=== PATIENT | male | born 1960 | race Caucasian/White ===

== ENCOUNTER 2021-12-05 08:00 | Outpatient (CLI) | payer OTHER ==
[2021-12-05 20:48] LABS: BASOPHILS % (AUTO) 0.3 %; EOSINOPHILS % (AUTO) 0.2 %; HCT - HEMATOCRIT 48.2 % (42.0-52.0); HGB - HEMOGLOBIN 17.8 g/dL (14.0-18.0); LYMPHOCYTES # (AUTO) 1.1 10^3/uL (1.5-3.5); LYMPHOCYTES % (AUTO) 11.1 %; MEAN CORPUSCULAR HEMOGLOBIN 36.7 pg (27.0-31.0); MEAN CORPUSCULAR HGB CONC 36.9 g/dL (32.0-36.0); MEAN CORPUSCULAR VOLUME 99.4 fL (80.0-94.0); MEAN PLATELET VOLUME 10.9 fL (7.4-11.4); MONOCYTES % (AUTO) 10.4 %; NEUTROPHILS # (AUTO) 7.4 10^3/uL (1.5-6.6); NEUTROPHILS % (AUTO) 77.7 %; PLT - PLATELET COUNT 166 10^3/uL (130-450); RED BLOOD COUNT 4.85 10^6/uL (4.70-6.10); RED CELL DISTRIBUTION WIDTH 12.5 % (12.0-15.0); WHITE BLOOD COUNT 9.5 x10^3/uL (4.8-10.8)
[2021-12-05 21:02] LABS: ALBUMIN 4.3 g/dL (3.2-5.5); ALBUMIN/GLOBULIN RATIO 1.1 (1.0-2.2); ALKALINE PHOSPHATASE 77 IU/L (42-121); ALT ALANINE AMINOTRANSFERASE 44 IU/L (10-60); AST ASPARTATE AMINOTRANSFERASE 87 IU/L (10-42); BILIRUBIN,TOTAL 4.5 mg/dL (0.2-1.0); BUN - BLOOD UREA NITROGEN 13 mg/dL (6-20); CALCIUM 9.4 mg/dL (8.5-10.3); CARBON DIOXIDE - CO2 30 mmol/L (21-32); CHLORIDE 92 mmol/L (101-111); CHOL/HDL RATIO 2.3 (<5.0); CHOLESTEROL 155 mg/dL; GFR - MDRD 34 (>89); GLUCOSE 136 mg/dL (70-100); HDL CHOLESTEROL 67 mg/dL; LDL CHOLESTEROL,CALCULATED 69 mg/dL; POTASSIUM 3.1 mmol/L (3.5-5.0); SODIUM 134 mmol/L (135-145); TOTAL PROTEIN 8.2 g/dL (6.7-8.2); TRIGLYCERIDES 93 mg/dL; VLDL CHOLESTEROL 19 mg/dL
[2021-12-05 21:09] LABS: ESTIMATED AVERAGE GLUCOSE 88 mg/dL (70-100); HEMOGLOBIN A1c% 4.7 % (4.27-6.07)
== END 2021-12-05 23:59 | disposition home or self-care (01) ==
LOC: LAB.N 08:00
PROVIDERS: ATTEND Physician Assistant
DX: I10 Essential (primary) hypertension (principal); E78.5 Hyperlipidemia, unspecified; E11.9 Type 2 diabetes mellitus without complications
CPT/HCPCS: 36415; 80053; 80061; 83036; 83721; 85025

== ENCOUNTER 2021-12-10 08:00 | Outpatient (CLI) | payer OTHER ==
[2021-12-10 18:17] LABS: CALCIUM 9.2 mg/dL (8.5-10.3); CREATININE 1.1 mg/dL (0.6-1.2)
== END 2021-12-10 23:59 | disposition home or self-care (01) ==
LOC: LAB.N 08:00
PROVIDERS: ATTEND Physician Assistant
DX: I10 Essential (primary) hypertension (principal)
CPT/HCPCS: 36415; 80048; 82150; 83690

== ENCOUNTER 2022-11-24 01:15 | Outpatient (CLI) | payer OTHER | END 2022-11-24 01:16 | disposition other institution (70) | LOC: EMS 01:15 | DX: S01.81XA Laceration without foreign body of other part of head, initial encounter (principal); S01.21XA Laceration without foreign body of nose, initial encounter; S36.892A Contusion of other intra-abdominal organs, initial encounter; S60.512A Abrasion of left hand, initial encounter; S60.511A Abrasion of right hand, initial encounter; S82.892B Other fracture of left lower leg, initial encounter for open fracture type I or II; S09.90XA Unspecified injury of head, initial encounter; R41.2 Retrograde amnesia; V23.49XA Other motorcycle driver injured in collision with car, pick-up truck or van in traffic accident, initial encounter; Y93.55 Activity, bike riding; Y92.414 Local residential or business street as the place of occurrence of the external cause | CPT/HCPCS: A0425; A0427 ==

== ENCOUNTER 2024-05-16 17:32 | Inpatient (IN) ==
--- NOTE | 2024-05-16 17:40 | ED Physician Documentation ---
PD HPI DYSPNEA Stated complaint Stated Complaint: SOA Chief complaint Chief Complaint: Resp History obtained from History obtained from: Patient and EMS History of Present Illness Timing - onset: How many weeks ago (1) Timing - duration: Weeks (1) Timing - details: Abrupt onset (he states a week of fevers/aches, weakness, poor appetite and intake accompanies by nausea/some vomiting/diarrhea. Worse dyspnea with cough and called EMS. they noted Sats low 70s%. placed on oxygen and given nebs. ) Inciting event(s): URI Associated symptoms: Fever, Cough and Wheezing; No Palpitations or Bilateral edema Similar symptoms before: Has not had sx before Recently seen: Not recently seen Meds/Allgy Allergies Allergies Allergy/AdvReac Type Severity Reaction Status Date / Time No Known Drug Allergies Allergy Verified 05/16/24 17:39 [facility] Social History Social History (Updated 05/16/24 @ 20:49 by Guanakito Mcclain DNP) Smoking Status: Former smoker Do you dip or chew tobacco?: No Do you vape?: No Patient requests smoking cessation consult: No Initiate information on smoking cessation: No Relationship: Level: Independent Do you feel safe in your home environment?: Yes Suffered physical, verbal, emotional, or financial abuse?: No Substance Use: denies use Exam Constitutional normal general appearance, distress noted (moderate) (work of breathing), average body habitus and alert HENMT oral mucous membranes abnormal (dry) and oropharynx normal Neck/C-Spine supple and no meningeal signs Lymph no lymphadenopathy noted Respiratory breath sounds unequal, abnormal respiratory effort (labored), auscultation abnormal (diminished breath sound) (rigth base) and (bronchial breath sounds) and wheezing noted (expiratory wheezes) Cardiovascular heart rate abnormal (tachycardic), regular rhythm noted, no murmur and no edema Gastrointestinal abdomen soft to palpation and nontender to palpation Neurology coordination normal and GCS 15 Psychiatry mental status grossly normal, oriented x3 and thought process normal Skin skin color abnormal (pale) and no rash Results Vitals Vitals: Vital Signs - 24 hr 05/16/24 17:36 05/16/24 17:46 05/16/24 17:47 Temperature 37.5 C Temperature Source Temporal Artery Scan Pulse Rate 114 H Respiratory Rate 22 Blood Pressure 155/74 H O2 Saturation 92 85 L Oxygen Delivery Method Nasal Cannula O2 Source neb Room air If not protocol: Oxygen Flow, liters/minute 6 FiO2 (%) Pain Intensity 0 05/16/24 18:09 05/16/24 18:10 05/16/24 18:55 Temperature Temperature Source Pulse Rate 116 H 116 H 112 H Respiratory Rate 22 22 20 Blood Pressure 135/74 H 137/74 H O2 Saturation 94 94 Oxygen Delivery Method O2 Source high flow HHFNC HHFNC If not protocol: Oxygen Flow, liters/minute 45 45 FiO2 (%) 60 Pain Intensity Oxygen O2 Source HHFNC EKG (time done) 17:54: EKG releavant findings:: EKG personally interpreted by author of this note. Relevant findings are: Rate: Rate (enter#) (116) Rhythm: Sinus tachycardia [place]: Normal Intervals: Normal RI; No Prolonged QT QRS: QRS normal Ischemia: Normal ST segments; No ST elevation c/w ischemia Compare to prior EKG: Old EKG unavailable Labs Labs: Laboratory Tests 05/16/24 05/16/24 05/16/24 17:36 17:44 17:44 WBC 3.8 L RBC 2.45 L Hgb 10.1 L Hct 25.1 L MCV 102.4 H MCH 41.2 H MCHC 40.2 H RDW 15.9 H Plt Count 58 L MPV 10.5 Neut # (Auto) Not Reportable Lymph # (Auto) Not Reportable [place] # (Auto) Not Reportable Eos # (Auto) Not Reportable Baso # (Auto) Not Reportable Absolute Nucleated RBC Not Reportable Total Counted 100 Band Neuts % (Manual) 13 H Abnorm Lymph % (Manual) 0 Metamyelocytes % 5 H Myelocytes % 1 H Nucleated RBC % Not Reportable Neutrophils # (Manual) 2.9 Lymphocytes # (Manual) 0.4 L Monocytes # (Manual) 0.3 Eosinophils # (Manual) 0.0 Basophils # (Manual) 0.0 Differential Comment MANUAL DIFFERENTIAL Manual Slide Review Indicated WBC Morphology 1+ TOXIC GRANULATION Platelet Estimate DECREASED (<130,000) Platelet Morphology NORMAL APPEARANCE RBC Morph Micro Appear 1+ ANISOCYTOSIS 1+ MICROCYTOSIS Bld Gas Analysis Time Sample Site ABG pH ABG pCO2 ABG pO2 ABG HCO3 ABG Total CO2 ABG O2 Saturation ABG Base Excess Hong Test O2 Delivery Device O2 Liters/Min FiO2 Sodium Potassium Chloride Carbon Dioxide Anion Gap BUN Creatinine Estimated GFR (MDRD) Glucose Calcium Magnesium Total Bilirubin AST ALT Alkaline Phosphatase Troponin I High Sens B-Natriuretic Peptide Total Protein Albumin Globulin Albumin/Globulin Ratio Lipase Nasal Adenovirus (PCR) NOT DETECTED Nasal B. parapertussis DNA (PCR) NOT DETECTED Nasal Coronavir 229E PCR NOT DETECTED Nasal Coronavir HKU1 PCR NOT DETECTED Nasal Coronavir NL63 PCR NOT DETECTED Nasal Coronavir OC43 PCR NOT DETECTED Nasal Enterovir/Rhinovir PCR NOT DETECTED Nasal Influ A H1 2009 PCR DETECTED A Nasal Influenza B PCR NOT DETECTED Nasal Parainfluen 1 PCR NOT DETECTED Nasal Parainfluen 2 PCR NOT DETECTED Nasal Parainfluen 3 PCR NOT DETECTED Nasal Parainfluen 4 PCR NOT DETECTED Nasal RSV (PCR) NOT DETECTED Nasal B.pertussis DNA PCR NOT DETECTED Nasal C.pneumoniae (PCR) NOT DETECTED Jack Human Metapneumo PCR NOT DETECTED Nasal M.pneumoniae (PCR) NOT DETECTED Nasal SARS-CoV-2 (PCR) NOT DETECTED 05/16/24 05/16/24 05/16/24 17:44 17:44 17:44 WBC RBC Hgb Hct MCV MCH MCHC RDW Plt Count MPV Neut # (Auto) Lymph # (Auto) [place] # (Auto) Eos # (Auto) Baso # (Auto) Absolute Nucleated RBC Total Counted Band Neuts % (Manual) Abnorm Lymph % (Manual) Metamyelocytes % Myelocytes % Nucleated RBC % Neutrophils # (Manual) Lymphocytes # (Manual) Monocytes # (Manual) Eosinophils # (Manual) Basophils # (Manual) Differential Comment Manual Slide Review WBC Morphology Platelet Estimate Platelet Morphology RBC Morph Micro Appear 1+ MACROCYTOSIS 1+ HYPOCHROMASIA 1+ POLYCHROMASIA Bld Gas Analysis Time Sample Site ABG pH ABG pCO2 ABG pO2 ABG HCO3 ABG Total CO2 ABG O2 Saturation ABG Base Excess Hong Test O2 Delivery Device O2 Liters/Min FiO2 Sodium 123 L Potassium 2.0 L* Chloride 88 L Carbon Dioxide 15 L Anion Gap 20.0 H BUN 46 H Creatinine 4.2 H Estimated GFR (MDRD) 14 L Glucose 148 H Calcium 7.6 L Magnesium 1.0 L* Total Bilirubin 2.4 H AST 160 H ALT 70 H Alkaline Phosphatase 30 L Troponin I High Sens 164.2 H* B-Natriuretic Peptide 129 H Total Protein 6.7 Albumin 3.8 Globulin 2.9 Albumin/Globulin Ratio 1.3 Lipase 50 Nasal Adenovirus (PCR) Nasal B. parapertussis DNA (PCR) Nasal Coronavir 229E PCR Nasal Coronavir HKU1 PCR Nasal Coronavir NL63 PCR Nasal Coronavir OC43 PCR Nasal Enterovir/Rhinovir PCR Nasal Influ A H1 2009 PCR Nasal Influenza B PCR Nasal Parainfluen 1 PCR Nasal Parainfluen 2 PCR Nasal Parainfluen 3 PCR Nasal Parainfluen 4 PCR Nasal RSV (PCR) Nasal B.pertussis DNA PCR Nasal C.pneumoniae (PCR) Jack Human Metapneumo PCR Nasal M.pneumoniae (PCR) Nasal SARS-CoV-2 (PCR) 05/16/24 18:32 WBC RBC Hgb Hct MCV MCH MCHC RDW Plt Count MPV Neut # (Auto) Lymph # (Auto) [place] # (Auto) Eos # (Auto) Baso # (Auto) Absolute Nucleated RBC Total Counted Band Neuts % (Manual) Abnorm Lymph % (Manual) Metamyelocytes % Myelocytes % Nucleated RBC % Neutrophils # (Manual) Lymphocytes # (Manual) Monocytes # (Manual) Eosinophils # (Manual) Basophils # (Manual) Differential Comment Manual Slide Review WBC Morphology Platelet Estimate Platelet Morphology RBC Morph Micro Appear Bld Gas Analysis Time 1838 Sample Site RIGHT RADIAL ABG pH 7.43 ABG pCO2 18 L* ABG pO2 191 H ABG HCO3 11.9 L ABG Total CO2 12.5 L ABG O2 Saturation 99 H ABG Base Excess -12.6 L Hong Test POSITIVE O2 Delivery Device NASAL CANNULA O2 Liters/Min 45.00 FiO2 66.00 Sodium Potassium Chloride Carbon Dioxide Anion Gap BUN Creatinine Estimated GFR (MDRD) Glucose Calcium Magnesium Total Bilirubin AST ALT Alkaline Phosphatase Troponin I High Sens B-Natriuretic Peptide Total Protein Albumin Globulin Albumin/Globulin Ratio Lipase Nasal Adenovirus (PCR) Nasal B. parapertussis DNA (PCR) Nasal Coronavir 229E PCR Nasal Coronavir HKU1 PCR Nasal Coronavir NL63 PCR Nasal Coronavir OC43 PCR Nasal Enterovir/Rhinovir PCR Nasal Influ A H1 2009 PCR Nasal Influenza B PCR Nasal Parainfluen 1 PCR Nasal Parainfluen 2 PCR Nasal Parainfluen 3 PCR Nasal Parainfluen 4 PCR Nasal RSV (PCR) Nasal B.pertussis DNA PCR Nasal C.pneumoniae (PCR) Jack Human Metapneumo PCR Nasal M.pneumoniae (PCR) Nasal SARS-CoV-2 (PCR) Rads (name of study) chest xray: Relevant Findings:: Final report received and EMP independent interpretation of test Interpretation: FINDINGS: Surgical changes and devices: Right port device is in place with distal tip projecting near the cavoatrial junction. Lungs and pleura: Diffuse interstitial prominence. Loss of vascular distinctness. Mild vascular congestion. Small right pleural effusion. No pneumothorax. Patchy opacity of the right lung base. Mediastinum: Mediastinal contours appear normal. Heart size is mildly enlarged. Bones and chest wall: No suspicious bony lesions. Overlying soft tissues appear unremarkable. IMPRESSION: Mild cardiomegaly with findings suggestive of pulmonary edema/CHF. However, concurrent infectious process in the right lower lung zone not excluded if clinically appropriate. PD Medical Decision Making ED course Complexity details: reviewed results (significant lab abnormalities with creatinine 4.2, K 2.0, and Mag 1.0. Resp panel positive for Influenza A. ), re- evaluated patient (breathing is more relaxed and sats consistently adequate on high flow NC, was just okay on regular NC at 6-8 lpm. Pt does not appear to be heading to ventilatory respiratory failure, just the oxygenation insufficency. ) and considered differential (seems viral flu like illness with cough and dyspnea, development of pneumonia/pneumonitis renal insufficiency from dehydration, and severe electrolyte abnormalities. ) Reviewed Lab Results: FINDINGS: Surgical changes and devices: Right port device is in place with distal tip projecting near the cavoatrial junction. Lungs and pleura: Diffuse interstitial prominence. Loss of vascular distinctness. Mild vascular congestion. Small right pleural effusion. No pneumothorax. Patchy opacity of the right lung base. Mediastinum: Mediastinal contours appear normal. Heart size is mildly enlarged. Bones and chest wall: No suspicious bony lesions. Overlying soft tissues appear unremarkable. IMPRESSION: Mild cardiomegaly with findings suggestive of pulmonary edema/CHF. However, concurrent infectious process in the right lower lung zone not excluded if c linically appropriate. ED course: Patient with a prior history of lung cancer previously treated with radiation and chemo without surgery and has been cleared without any apparent recurrence now has 1 week of cough fevers malaise congestion which she thought was likely the flu. It has increased dyspnea over the last day or 2 in particular with productive sputum. Now dyspnea to the point of unable to walk even to the bathroom. Called EMS and they noted his sats to be low 80s. Given nebulizer treatments for wheezing and placed on higher oxygen. He does not have notable significant increased work of breathing. He is awake and conversant and does not look to be in impending failure. Lung sounds are wheezy without any crackles per se but some coarse sounds noted on the right in particular. Initial chest x-ray showing likely patchy infiltrates particularly on the right side and right lower. Lab tests are still pending. Initial oxygen level on room air after arrival here with a trial off oxygen showing 85 to 88%. Placed on nasal cannula 5 to 6 L with resulting just above 90%. We will give repeat nebulizer treatment. Maintain on oxygen or perhaps try high flow if needed. He does not look to be in impending failure as noted. We will watch carefully. Initially covering for secondary bacterial in case. Getting a respiratory panel. Will also look for signs of failure but no history of heart disease per se. No history of reactive lung disease and does not use oxygen or inhalers at home. Presume a viral type illness with now either viral pneumonitis or secondary bacterial pneumonia. Critical Care Critical Care Provided: Yes Time(min): 45 Comments: evaluation of resp distress, high flow oxygen, assess for deterioration. Give IV electorlyte replacements and fluids for critical lab abnormalities. Time Includes: Direct patient care, Reassess patient, Document care, Coordinate care and Medical consult Data interpretation: Labs, Pulse ox and CXR Procedures excluded from critical care time: EKG Discharge Plan Discharge Patient Disposition: 66 [facility] DC/Xfer Condition: Stable Clinical Impression: Electrolyte and fluid disorder, Pneumonia, Hypoxia, Acute dyspnea, Flu-like symptoms, Acute dehydration, CALOS (acute kidney injury) Interventions: ED Admission Assessment Last Done: 05/16/24 20:18
[2024-05-16] MEDS ORDERED: IPRATROPIUM/ALBUTEROL 3 ML NEB INH ONE (18:02)
[2024-05-16] MEDS: DEXAMETHASONE 10 MG/ML VIAL IVP STA (18:04)
[2024-05-16] MEDS: cefTRIAXone 1 GM VIAL IVP STA (18:04)
--- NOTE | 2024-05-16 18:04 | XRAY Report ---
PROCEDURE: XR Chest 1V INDICATIONS: shortness of breath TECHNIQUE: One view of the chest was acquired. COMPARISON: None. FINDINGS: Surgical changes and devices: Right port device is in place with distal tip projecting near the cavo atrial junction. Lungs and pleura: Diffuse interstitial prominence. Loss of vascular distinctness. Mild vascular jenny estion. Small right pleural effusion. No pneumothorax. Patchy opacity of the right lung base. Mediastinum: Mediastinal contours appear normal. Heart size is mildly enlarged. Bones and chest wall: No suspicious bony lesions. Overlying soft tissues appear unremarkable. IMPRESSION: Mild cardiomegaly with findings suggestive of pulmonary edema/CHF. However, concurrent infectious pro cess in the right lower lung zone not excluded if clinically appropriate. Recommend follow-up chest radiograph 4-6 weeks after treatment to document resolution of findings and /or return to baseline exam. Reviewed by: Johan Veliz MD on 05/16/2024 6:02 PM PST Approved by: Johan Veliz MD on 05/16/2024 6:02 PM PST Station ID: [id number]
[2024-05-16] MEDS: SODIUM CHLORIDE 0.9% 1,000 ML IV STA ×2 (18:05→20:32)
[2024-05-16] MEDS: IPRATROPIUM/ALBUTEROL 3 ML NEB INH STA (18:08)
[2024-05-16 18:14] LABS: ALBUMIN 3.8 g/dL (3.2-5.5); ALBUMIN/GLOBULIN RATIO 1.3 (1.0-2.2); BILIRUBIN,TOTAL 2.4 mg/dL (0.2-1.0); CALCIUM 7.6 mg/dL (8.5-10.3); CREATININE 4.2 mg/dL (0.6-1.3); TOTAL PROTEIN 6.7 g/dL (6.4-8.9); TROPONIN I HIGH SENSITIVITY 164.2 ng/L (2.3-19.7)
[2024-05-16] MEDS: AZITHROMYCIN INJ 500 MG in SODIUM CHLORIDE 0.9% 250 ML IV STA (18:21)
[2024-05-16] MEDS: POTASSIUM CHLOR 10 MEQ/100 ML 10 MEQ/100 ML BAG IV ONE (18:31)
[2024-05-16] MEDS: MAGNESIUM SULFATE 2 GRAM 2 GM/50 ML BAG IV ONE ×2 (18:31→22:52)
[2024-05-16 18:44] LABS: ABG OXYGEN SATURATION 99 % (95-98); ABG PH 7.43 (7.35-7.45); ABG PO2 191 mmHg (83-108); ABG TCO2 12.5 mmol/L (21.0-29.0)
[2024-05-16 18:45] LABS: ABG BASE EXCESS -12.6 mmol/L (-2.0-3.0); ALLEN TEST POSITIVE
[2024-05-16 18:49] LABS: ABG PCO2 18 mmHg (34-45)
[2024-05-16 18:53] LABS: CORONAVIRUS 229E-RESP PCR NOT DETECTED; CORONAVIRUS NL63-RESP PCR NOT DETECTED; CORONAVIRUS OC43-RESP PCR NOT DETECTED
[2024-05-16] MEDS: LACTATED RINGERS 1,000 ML IV ONE (18:53)
[2024-05-16 18:54] LABS: B. PARAPERTUSSIS- RESP PCR PAN NOT DETECTED; B. PERTUSSIS- RESP PCR PANEL NOT DETECTED; C. PNEUMONIAE- RESP PCR PANEL NOT DETECTED; CORONAVIRUS HKU1-RESP PCR NOT DETECTED; HUMAN METAPNEUMOVIRUS NOT DETECTED; INFLUENZA A H1 2009- RESP PCR DETECTED; INFLUENZA B - RESP PCR PANEL NOT DETECTED; M. PNEUMONIAE- RESP PCR PANEL NOT DETECTED; PARAINFLUENZA VIRUS 1 NOT DETECTED; PARAINFLUENZA VIRUS 2 NOT DETECTED; PARAINFLUENZA VIRUS 4 NOT DETECTED; RHINOVIRUS/ENTEROVIRUS NOT DETECTED; RSV- RESP PCR PANEL NOT DETECTED; SARS-CoV-2 -RESP PCR PANEL NOT DETECTED
[2024-05-16 19:05] LABS: BASOPHILS % (AUTO) 0.3 %; HCT - HEMATOCRIT 25.1 % (42.0-52.0); HGB - HEMOGLOBIN 10.1 g/dL (14.0-18.0); LYMPHOCYTES % (AUTO) 5.2 %; MEAN CORPUSCULAR HEMOGLOBIN 41.2 pg (27.0-31.0); MEAN CORPUSCULAR HGB CONC 40.2 g/dL (32.0-36.0); MEAN CORPUSCULAR VOLUME 102.4 fL (80.0-94.0); MEAN PLATELET VOLUME 10.5 fL (7.4-11.4); MONOCYTES % (AUTO) 4.9 %; NEUTROPHILS % (AUTO) 88.6 %; PLT - PLATELET COUNT 58 10^3/uL (130-450); RED BLOOD COUNT 2.45 10^6/uL (4.70-6.10); RED CELL DISTRIBUTION WIDTH 15.9 % (12.0-15.0); WHITE BLOOD COUNT 3.8 x10^3/uL (4.8-10.8)
[2024-05-16 19:07] LABS: SLIDE REVIEW? Indicated
--- NOTE | 2024-05-16 19:08 | HISTORY & PHYSICAL EXAMINATION ---
Chief Complaint Chief Complaint Chief Complaint: Shortness of breath History of Present Illness Admitted From Admitted From:: Home History Obtained From History obtained from: Patient interview History of Present Illness HPI Comment/Other: 64-year-old male PMH significant for lung cancer previously treated with radiation and chemo without surgery who presents to the ER with 1 week of fevers, cough, malaise, chest congestion, nausea, diarrhea. EMS noted his sats to be in the low 80s. He was given nebs and brought into the ER In the ER, chest x-ray was performed which showed mild cardiomegaly, infectious versus fluid overload process specifically right lower lung. His lab work was significant for potassium 2, sodium 123, CO2 15, creatinine 4.2, mag 1, troponin 164. His respiratory status was poor, requiring high flow O2. Hospitalist was contacted for admission for acute hypoxic respiratory failure Meds/Allgy Allergies Allergies Allergy/AdvReac Type Severity Reaction Status Date / Time No Known Drug Allergies Allergy Verified 05/16/24 17:39 [facility] Social History Social History Smoking Status: Former smoker Do you dip or chew tobacco?: No Do you vape?: No Patient requests smoking cessation consult: No Initiate information on smoking cessation: No Relationship: Level: Independent Do you feel safe in your home environment?: Yes Suffered physical, verbal, emotional, or financial abuse?: No Substance Use: denies use POLST Patient has POLST: No Review of Systems Status of ROS: 10 or more systems reviewed and unremarkable except as noted in history and below Constitutional Reports: Fever, Chills and Malaise Cardiovascular Reports: shortness of breath with exertion; Denies: chest pain, palpitations or edema Respiratory Reports: Shortness of breath, Cough and Sputum production Gastrointestinal Reports: Nausea and Diarrhea Exam Constitutional normal general appearance Resting comfortably on high flow O2 HENMT normocephalic and head/scalp atraumatic Eyes PERRL Neck/C-Spine visual inspection normal Lymph no lymphadenopathy noted Chest inspection of chest normal and palpation of chest normal Respiratory Rhonchorous breath sounds, Congested cough Cardiovascular normal heart rate noted and regular rhythm noted Gastrointestinal abdomen normal to inspection Extremities normal to inspection Neurology GCS 15 Psychiatry oriented x3 Conclusion/Plan Problem List (1) Acute hypoxic respiratory failure: Plan: Flu a positive CXR with fluid overload versus pneumonia Clinically appears dry, will treat as infectious Low threshold for CTA chest, Holding off for now given his acute kidney failure Orders: Check D-dimer, If positive he will need CTA chest Placed in ICU Manage flu as below Check procalcitonin, If positive will add Rocephin in the morning Trend troponin (2) CALOS (acute kidney injury): Plan: He has had dehydration secondary to GI losses from the flu This is caused an acute kidney injury with metabolic acidosis as well as multiple electrolyte derangements Exercising caution with fluid repletion as he has a hyponatremia Orders: 100 mEq bicarb IV x 1 LR at 125 Intake/output ICU electrolyte protocol Repeating lab work, including BMP after initial fluid resuscitation (3) Acute hyponatremia: Plan: Likely secondary to GI losses Orders: BMP every 4 hours LR at 125 (4) Electrolyte and fluid disorder: Plan: I have ordered 40 mEq p.o. and 40 mEq IV potassium Magnesium was repleted by ER provider Recheck BMP and magnesium now ICU electrolyte protocol (5) Flu-like symptoms: Plan: Flu a positive He has had flulike symptoms for a week, outside the window for Tamiflu Supportive care including Decadron 6 mg p.o. daily, DuoNebs as needed, Mucinex 1200 mg twice daily Plan Admit inpatient ICU Full code His son is his surrogate decision maker Lab Results Lab results reviewed: Yes 05/16/24 17:44 05/16/24 17:44 Core Measures Anticipated LOS I expect patient to be DC'd or transferred within 96 hours.: Yes DVT/VTE - Prophylaxis VTE/DVT Prophylaxis med ordered at admit?: Yes
[2024-05-16 19:09] LABS: ABNORMAL LYMPHS % (MANUAL) 0 %
--- NOTE | 2024-05-16 19:11 | ED Physician Documentation ---
ED Addendum Addendum Addendum: I assigned myself to this patient in error, I was not directly involved in their care. They were admitted under hospitalist service without incident. Discharge Plan Discharge Patient Disposition: 66 [facility] DC/Xfer Condition: Stable Clinical Impression: Electrolyte and fluid disorder, Pneumonia, Hypoxia, Acute dyspnea, Flu-like symptoms, Acute dehydration, CALOS (acute kidney injury) Interventions: ED Admission Assessment Last Done: 05/16/24 20:18
[2024-05-16] MEDS ORDERED: PROMETHAZINE 25 MG/1 ML VIAL ONE (19:13)
[2024-05-16 19:15] LABS: BAND NEUTROPHILS % (MANUAL) 13 %; LYMPHOCYTES # (MANUAL) 0.4 10^3/uL (1.5-3.5); LYMPHOCYTES % (MANUAL) 11 %; METAMYELOCYTES % (MANUAL) 5 %; MONOCYTES # (MANUAL) 0.3 10^3/uL (0.0-1.0); MYELOCYTES % (MANUAL) 1 %; NEUTROPHILS # (MANUAL) 2.9 10^3/uL (1.5-6.6)
[2024-05-16 19:17] LABS: PLATELET ESTIMATE, MANUAL DECREASED (<130,000) (NORMAL); PLATELET MORPHOLOGY NORMAL APPEARANCE (NORMAL)
[2024-05-16 19:18] LABS: DIFFERENTIAL COMMENT MANUAL DIFFERENTIAL; WBC MORPHOLOGY (MULTIPLE) 1+ TOXIC GRANULATION (NORMAL)
[2024-05-16] MEDS: SODIUM BICARBONATE ABBOJECT 50 MEQ/50 ML SYRINGE IVP STA (19:29)
[2024-05-16] MEDS: PROMETHAZINE INJ 25 MG in SODIUM CHLORIDE 0.9% 50 ML IV STA (19:33)
[2024-05-16] MEDS: ONDANSETRON 4 MG/2 ML VIAL IVP STA (19:41)
[2024-05-16] MEDS: POTASSIUM CHLOR 10 MEQ/100 ML 10 MEQ/100 ML BAG IV SCH (19:42)
[2024-05-16] MEDS: POTASSIUM CHLORIDE 20 MEQ TABLET PO STA (19:46)
[2024-05-16] MEDS ORDERED: ACETAMINOPHEN 325 MG TABLET PO PRN (20:19)
[2024-05-16] MEDS ORDERED: ONDANSETRON ODT 4 MG TABLET TL PRN (20:19)
[2024-05-16] MEDS ORDERED: ONDANSETRON 4 MG/2 ML VIAL IVP PRN (20:19)
[2024-05-16] MEDS: HEPARIN 5,000 UNIT/ML VIAL SUBQ SCH (21:04)
[2024-05-16] MEDS: LACTATED RINGERS 1,000 ML IV SCH (21:05)
[2024-05-16 21:52] LABS: MAGNESIUM 1.5 mg/dL (1.7-2.3)
[2024-05-16 21:56] LABS: CALCIUM 7.2 mg/dL (8.5-10.3); CREATININE 4.1 mg/dL (0.6-1.3); POTASSIUM 2.3 mmol/L (3.5-4.5)
[2024-05-16 21:59] LABS: PROCALCITONIN 21.23 ng/mL (<0.5); TROPONIN I HIGH SENSITIVITY 142.2 ng/L (2.3-19.7)
[2024-05-16] MEDS: SODIUM BICARBONATE 650 MG TABLET PO SCH (22:52)
[2024-05-17] MEDS ORDERED: POTASSIUM CHLORIDE 20 MEQ TABLET PO SCH (00:01)
[2024-05-17] MEDS: POTASSIUM CHLOR 10 MEQ/100 ML 10 MEQ/100 ML BAG IV SCH ×2 (00:03→12:12)
[2024-05-17] MEDS: SODIUM CHLORIDE FLUSH 0.9% 10 ML SYRINGE IVP SCH (00:05)
[2024-05-17 05:01] LABS: CALCIUM, IONIZED 1.03 mmol/L (1.09-1.30)
[2024-05-17] MEDS: guaiFENesin 100 MG/5 ML UDC PO PRN (05:05)
[2024-05-17 05:16] LABS: MAGNESIUM 1.9 mg/dL (1.7-2.3); PHOSPHORUS 3.1 mg/dL (2.5-5.0)
[2024-05-17 05:19] LABS: ALBUMIN 3.2 g/dL (3.2-5.5); ALBUMIN/GLOBULIN RATIO 1.2 (1.0-2.2); BILIRUBIN,TOTAL 1.8 mg/dL (0.2-1.0); CALCIUM 7.3 mg/dL (8.5-10.3); CREATININE 4.3 mg/dL (0.6-1.3); POTASSIUM 2.8 mmol/L (3.5-4.5); TOTAL PROTEIN 5.8 g/dL (6.4-8.9)
[2024-05-17 05:21] LABS: MEAN CORPUSCULAR HEMOGLOBIN 39.5 pg (27.0-31.0); MEAN CORPUSCULAR HGB CONC 38.6 g/dL (32.0-36.0); MEAN CORPUSCULAR VOLUME 102.3 fL (80.0-94.0); MEAN PLATELET VOLUME 9.9 fL (7.4-11.4); RED CELL DISTRIBUTION WIDTH 16.2 % (12.0-15.0)
[2024-05-17 05:44] LABS: RED BLOOD COUNT 2.15 10^6/uL (4.70-6.10)
[2024-05-17 05:46] LABS: HGB - HEMOGLOBIN 8.5 g/dL (14.0-18.0)
[2024-05-17] MEDS ORDERED: IPRATROPIUM/ALBUTEROL 3 ML NEB INH PRN (05:48)
[2024-05-17] MEDS: PANTOPRAZOLE 40 MG TABLET PO SCH (06:28)
[2024-05-17] MEDS: IPRATROPIUM/ALBUTEROL 3 ML NEB INH PRN (06:55)
[2024-05-17] MEDS: POTASSIUM CHLORIDE 20 MEQ TABLET PO ONE ×2 (07:04→13:05)
[2024-05-17] MEDS: POTASSIUM CHLOR 10 MEQ/100 ML 10 MEQ/100 ML BAG IV ONE (07:04)
--- NOTE | 2024-05-17 08:22 | XRAY Report ---
PROCEDURE: XR Chest 1V INDICATIONS: SOB TECHNIQUE: One view of the chest was acquired. COMPARISON: 05/16/2024 FINDINGS: Surgical changes and devices: Right chest wall port hip projects over the low SVC. Lungs and pleura: Worsening patchy airspace disease, pericardial and left. Mediastinum: Cardiomegaly. Normal contour otherwise. Bones and chest wall: No suspicious bony lesions. Overlying soft tissues appear unremarkable. IMPRESSION: Worsening patchy bilateral airspace opacities, right greater than left. Differential includes pulmona ry edema, acute lung injury, severe infection. Findings are concordant with preliminary interpretation provided by [facility]. Reviewed by: Washington Mclaughlin MD on 05/17/2024 8:21 AM PST Approved by: Washington Mclaughlin MD on 05/17/2024 8:21 AM PST Station ID: [id number]
[2024-05-17] MEDS ORDERED: cefTRIAXone 1 GM VIAL IVP SCH (09:00)
[2024-05-17] MEDS ORDERED: AZITHROMYCIN 250 MG TABLET PO SCH (09:00)
[2024-05-17] MEDS: FUROSEMIDE 40 MG/4 ML VIAL IVP SCH (09:05)
[2024-05-17] MEDS: LIDOCAINE JELLY 2% 6 ML JEL.PF.APP TOP ONE (09:06)
[2024-05-17] MEDS: dexAMETHasone 4 MG TABLET PO SCH (09:08)
[2024-05-17] MEDS: CEFEPIME 2 GM VIAL IVP SCH (09:11)
--- NOTE | 2024-05-17 09:52 | PROVIDER PROGRESS NOTE ---
Subjective Prog Note Date Prog Note Date: 05/17/24 Subjective Pt reports feeling: No change Subjective: Mr Tra Ingram is a 64 year old gentleman admitted to the ICU for evaluation and treatment for Acute Hypoxic Respiratory Failure, Acute Kidney Injury, and acute electrolyte derangement. Found to be Influenza positive, and developing increased pulmonary edema/ fluid overload. 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 Presented initially to the ED w/ 1 week with flu-like symptoms including febrile, cough, malaise, and fluid loss secondary to diarrhea. Overnight Events/Subjective: 24 Hour Events: Increased WOB, placed on BiPAP 14/5 FiO2 50% Hospital Course by Date: 05/16 - ED course: placed on O2 therapy due to increased WOB w/ O2 sat in low 80's%. CXR s/s of pulmonary edema, PNA, started abx. Electrolyte derangement: iCal 1.03, K+ 2.0, Na 123, CO2 15, SrCr 4.2, Mag 1, Trop 134. ICU critical care electrolyte protocol. EKG-LVH, old infart, no STEMI 05/17- ICU admit: O2 sat continued to decline placed on BiPAP - CXR-worsening bilat consolidation R<L, LS course/decreased on RLL. D/c IV fluids, Lasix, Dexmethasone, added Vancomycin 2g - c/f PE Wells Score 5.5-mod risk/PERC 4-cannot rule out PE. Started Heparin. - ECHO - Elev Procalcitonin 21.23. Blood Cultures ordered. - Worsening ventilation/oxygenation with increased difficulty/work of breathing. He was intubated @1500hr w/ attending physician and anesthesia present. - Hypotensive reqiuring Norepi gtts Antibiotics: Ceftriazone 1g IV - D/c 05/17 Azithromycin 500mg IV - D/c 05/17 Added: Vancomycin 2g IV Cefepime 2g IV - qdaily Lines VAD-Port due to Chemo therapy for Cancer PIVs Critical Care Checklist: F: NPO, N/V Ondansetron IV/PO PRN A: PAD protocol on: APAP PRN S: PAD protocol on, sedation with Propofol, Fentanyl (intubation) T: DVT Protocol Active: yes, Heparin 5000u SQ BID H: Aspiration Protocol Active: Yes (HOB>30) U: Stress Ulcer Protocol Active: Yes, Protonix 40mg IV G: Glycemic control to goal glucose 140-180 Current Medications Current Medications Current Medications: Current Medications Generic Name Dose Route Start Last Admin Trade Name Freq PRN Reason Stop Dose Admin Acetaminophen 650 mg 05/16/24 20:19 Acetaminophen 325 Mg Tablet PO Q4HR PRN Pain 1 to 4, or Fever Albuterol/Ipratropium 3 ml 05/16/24 20:38 05/17/24 13:33 Ipratropium/Albuterol 3 Ml Neb INH 3 ml RTQID PRN Administration Shortness of Air/Wheezing Albuterol/Ipratropium 3 ml 05/17/24 05:48 Ipratropium/Albuterol 3 Ml Neb INH Q4HR PRN Shortness of Air/Wheezing Cefepime HCl 2 gm 05/17/24 09:00 05/17/24 09:11 Cefepime 2 Gm Vial IVP 2 gm DAILY DAVID Administration Furosemide 80 mg 05/17/24 09:00 05/17/24 09:05 Furosemide 40 Mg/4 Ml Vial IVP 80 mg DAILY DAVID Administration Guaifenesin 200 mg 05/16/24 22:30 05/17/24 05:05 Guaifenesin 100 Mg/5 Ml Udc PO 200 mg Q4H PRN Administration Cough Heparin Sodium (Porcine) 5,000 unit 05/16/24 21:00 05/17/24 09:11 Heparin 5,000 Unit/Ml Vial SUBQ Not Given BID DAVID Vancomycin HCl 1 gm/ 500 mls @ 250 mls/hr 05/19/24 10:00 Vancomycin HCl 500 mg/ Sodium IV Chloride Q48H [facility] Fentanyl 2,500 mcg/ Sodium 250 mls @ 8.8 mls/hr 05/17/24 14:45 05/17/24 16:21 Chloride IV 05/18/24 19:09 4 mcg/kg/hr .[id number] STA 35.2 mls/hr Titration Protocol 1 MCG/KG/HR Propofol 1,000 mg in 100 mls @ 5.28 mls/hr 05/17/24 15:00 05/17/24 16:21 Diprivan IV 30 mcg/kg/min .[id number] DAVID 15.84 mls/hr Titration Protocol 10 MCG/KG/MIN Norepinephrine/Sodium Chloride 8 mg in 250 mls @ 15 mls/hr 05/17/24 17:00 05/17/24 16:39 Levophed 8 Mg/250-0.9% Nacl IV 8 mcg/min .[id number] DAVID 15 mls/hr Administration Protocol 8 MCG/MIN Methylprednisolone 40 mg 05/17/24 14:00 05/17/24 13:30 Methylprednisolone Succinate 40 Mg/Ml Vial IVP 40 mg TID DAVID Administration Ondansetron HCl 4 mg 05/16/24 20:19 Ondansetron Odt 4 Mg Tablet TL Q6HR PRN Nausea / Vomiting Ondansetron HCl 4 mg 05/16/24 20:19 Ondansetron 4 Mg/2 Ml Vial IVP Q6HR PRN Nausea / Vomiting Oseltamivir Phosphate 30 mg 05/17/24 10:00 05/17/24 09:57 Oseltamivir 30 Mg Capsule PO 05/21/24 09:01 30 mg DAILY DAVID Administration Pantoprazole Sodium 40 mg 05/18/24 07:00 Pantoprazole 40 Mg Vial IVP QDAC DAVID Sodium Chloride 10 ml 05/17/24 01:00 05/17/24 09:05 Sodium Chloride Flush 0.9% 10 Ml Syringe IVP 10 ml 0100,0900,1700 DAVID Administration Sodium Chloride 10 ml 05/16/24 20:19 Sodium Chloride Flush 0.9% 10 Ml Syringe IVP PRN PRN NEEDED PER PROVIDER ORDERS Objective Vital Signs/Intake & Output Vital Signs: Vital Signs Temp Pulse Pulse Resp BP Pulse Ox 05/17/24 17:00 87 20 123/75 97 05/17/24 16:55 128/72 05/17/24 16:30 86/52 L 05/17/24 16:00 98.5 F 05/17/24 16:00 91 30 H 98/61 98 05/17/24 15:40 94 05/17/24 15:00 87 28 H 123/77 100 05/17/24 14:00 88 32 H 103/66 90 L 05/17/24 13:34 86 Intake & Output: Intake & Output 05/14/24 05/15/24 05/16/24 05/17/24 23:59 23:59 23:59 23:59 Intake Total 3181 / 3181 3646 / 3646 Output Total 0 / 0 1515 / 1515 Balance 3181 / 3181 2131 / 2131 Weight (kg) 88 kg 88 kg Objective General Appearance: positive Alert, Severe distress and Anxious Eyes Bilateral: positive Normal inspection, PERRL, EOMI and Conjunctivae nml ENT: positive ENT inspection nml, Pharynx nml and Dry mucous membranes Neck: positive Nml inspection, Thyroid nml, No JVD and Trachea midline Respiratory: positive Chest non-tender, Rales, Rhonchi and Other (bilateral rales/rhonchi, decreased in bases R<L) Cardiovascular: positive Regular rate & rhythm and Tachycardia (intermittent) Peripheral Pulses: 1+: Posterior tibialis (R) and 1+: Posterior tibialis (L) and 2+: Radial (R), 2+: Radial (L), 2+: Dorsalis pedis (R) and 2+: Dorsalis pedis (L) Abdomen: positive Non-tender, Abnml bowel sounds (decreased BT) and Other (passing flatulence ) Rectal: positive Other (deferred ) Back: positive Nml inspection Skin: positive Warm, Dry and Other (Pale) Extremities: positive Non-tender, Full ROM and Pedal edema (+1 dependent, non- pitting) Neurologic/Psychiatric: positive Oriented x3, CN's nml (2-12), Motor nml, Sensation nml, Weakness and Other (increased anxiety/aggitation) Lab Results 05/17/24 04:25 05/17/24 12:05 Other Labs: Lab Results x24hrs 05/17/24 05/17/24 05/17/24 Range/Units 12:05 09:27 04:25 WBC 3.0 L (4.8-10.8) x10^3/uL RBC 2.15 L (4.70-6.10) 10^6/uL Hgb 8.5 L (14.0-18.0) g/dL Hct 22.0 L (42.0-52.0) % MCV 102.3 H (80.0-94.0) fL MCH 39.5 H (27.0-31.0) pg MCHC 38.6 H (32.0-36.0) g/dL RDW 16.2 H (12.0-15.0) % Plt Count 50 L (130-450) 10^3/uL MPV 9.9 (7.4-11.4) fL Neut # (Auto) Lymph # (Auto) Bowie # (Auto) Eos # (Auto) Baso # (Auto) Absolute Nucleated RBC Total Counted Band Neuts % (Manual) (0 - 10) % Abnorm Lymph % (Manual) % Metamyelocytes % ( - 0) % Myelocytes % ( - 0) % Nucleated RBC % Neutrophils # (Manual) (1.5-6.6) 10^3/uL Lymphocytes # (Manual) (1.5-3.5) 10^3/uL Monocytes # (Manual) (0.0-1.0) 10^3/uL Eosinophils # (Manual) (0-0.7) 10^3/uL Basophils # (Manual) (0-0.1) 10^3/uL Differential Comment Manual Slide Review WBC Morphology (NORMAL) Platelet Estimate (NORMAL) Platelet Morphology (NORMAL) RBC Morph Micro Appear (NORMAL) D-Dimer (200.0-255.0) ng/mL Bld Gas Analysis Time Sample Site ABG pH (7.35-7.45) ABG pCO2 (34-45) mmHg ABG pO2 (83-108) mmHg ABG HCO3 (22.0-26.0) mmol/L ABG Total CO2 (21.0-29.0) mmol/L ABG O2 Saturation (95-98) % ABG Base Excess (-2.0-3.0) mmol/L Hong Test VBG pH 7.343 (7.31-7.41) Ionized Calcium 1.03 L (1.09-1.30) mmol/L O2 Delivery Device O2 Liters/Min LPM FiO2 Sodium 125 L 124 L 124 L (135-145) mmol/L Potassium 2.7 L 2.6 L 2.8 L (3.5-4.5) mmol/L Chloride 92 L 91 L 90 L (101-111) mmol/L Carbon Dioxide 18 L 17 L 15 L (21-32) mmol/L Anion Gap 15.0 H 16.0 H 19.0 H (6-13) BUN 49 H 49 H 47 H (6-20) mg/dL Creatinine 3.9 H 4.0 H 4.3 H (0.6-1.3) mg/dL Estimated GFR (MDRD) 16 L 15 L 14 L (>89) Glucose 172 H 182 H 195 H (74-104) mg/dL Calcium 7.3 L 7.4 L 7.3 L (8.5-10.3) mg/dL Phosphorus 3.1 (2.5-5.0) mg/dL Magnesium 1.9 (1.7-2.3) mg/dL Total Bilirubin 1.8 H (0.2-1.0) mg/dL AST 132 H (10-42) IU/L ALT 59 (10-60) IU/L Alkaline Phosphatase 22 L (42-121) IU/L Troponin I High Sens (2.3-19.7) ng/L B-Natriuretic Peptide (5-100) pg/mL Total Protein 5.8 L (6.4-8.9) g/dL Albumin 3.2 (3.2-5.5) g/dL Globulin 2.6 (2.1-4.2) g/dL Albumin/Globulin Ratio 1.2 (1.0-2.2) Lipase (11-82) U/L Procalcitonin Immunoas (<0.5) ng/mL Nasal Adenovirus (PCR) Nasal B. parapertussis DNA (PCR) Nasal Coronavir 229E PCR Nasal Coronavir HKU1 PCR Nasal Coronavir NL63 PCR Nasal Coronavir OC43 PCR Nasal Enterovir/Rhinovir PCR Nasal Influ A H1 2009 PCR Nasal Influenza B PCR Nasal Parainfluen 1 PCR Nasal Parainfluen 2 PCR Nasal Parainfluen 3 PCR Nasal Parainfluen 4 PCR Nasal RSV (PCR) Nasal Screen MRSA (PCR) (NEGATIVE) Nasal B.pertussis DNA PCR Nasal C.pneumoniae (PCR) Jack Human Metapneumo PCR Nasal M.pneumoniae (PCR) Nasal SARS-CoV-2 (PCR) 05/17/24 05/16/24 05/16/24 Range/Units 00:55 21:13 20:25 WBC (4.8-10.8) x10^3/uL RBC (4.70-6.10) 10^6/uL Hgb (14.0-18.0) g/dL Hct (42.0-52.0) % MCV (80.0-94.0) fL MCH (27.0-31.0) pg MCHC (32.0-36.0) g/dL RDW (12.0-15.0) % Plt Count (130-450) 10^3/uL MPV (7.4-11.4) fL Neut # (Auto) Lymph # (Auto) Bowie # (Auto) Eos # (Auto) Baso # (Auto) Absolute Nucleated RBC Total Counted Band Neuts % (Manual) (0 - 10) % Abnorm Lymph % (Manual) % Metamyelocytes % ( - 0) % Myelocytes % ( - 0) % Nucleated RBC % Neutrophils # (Manual) (1.5-6.6) 10^3/uL Lymphocytes # (Manual) (1.5-3.5) 10^3/uL Monocytes # (Manual) (0.0-1.0) 10^3/uL Eosinophils # (Manual) (0-0.7) 10^3/uL Basophils # (Manual) (0-0.1) 10^3/uL Differential Comment Manual Slide Review WBC Morphology (NORMAL) Platelet Estimate (NORMAL) Platelet Morphology (NORMAL) RBC Morph Micro Appear (NORMAL) D-Dimer 707.4 H (200.0-255.0) ng/mL Bld Gas Analysis Time Sample Site ABG pH (7.35-7.45) ABG pCO2 (34-45) mmHg ABG pO2 (83-108) mmHg ABG HCO3 (22.0-26.0) mmol/L ABG Total CO2 (21.0-29.0) mmol/L ABG O2 Saturation (95-98) % ABG Base Excess (-2.0-3.0) mmol/L Hong Test VBG pH (7.31-7.41) Ionized Calcium (1.09-1.30) mmol/L O2 Delivery Device O2 Liters/Min LPM FiO2 Sodium 125 L 125 L (135-145) mmol/L Potassium 2.3 L* (3.5-4.5) mmol/L Chloride 89 L (101-111) mmol/L Carbon Dioxide 16 L (21-32) mmol/L Anion Gap 20.0 H (6-13) BUN 46 H (6-20) mg/dL Creatinine 4.1 H (0.6-1.3) mg/dL Estimated GFR (MDRD) 15 L (>89) Glucose 151 H (74-104) mg/dL Calcium 7.2 L (8.5-10.3) mg/dL Phosphorus (2.5-5.0) mg/dL Magnesium 1.5 L (1.7-2.3) mg/dL Total Bilirubin (0.2-1.0) mg/dL AST (10-42) IU/L ALT (10-60) IU/L Alkaline Phosphatase (42-121) IU/L Troponin I High Sens 142.2 H* (2.3-19.7) ng/L B-Natriuretic Peptide (5-100) pg/mL Total Protein (6.4-8.9) g/dL Albumin (3.2-5.5) g/dL Globulin (2.1-4.2) g/dL Albumin/Globulin Ratio (1.0-2.2) Lipase (11-82) U/L Procalcitonin Immunoas 21.23 H* (<0.5) ng/mL Nasal Adenovirus (PCR) Nasal B. parapertussis DNA (PCR) Nasal Coronavir 229E PCR Nasal Coronavir HKU1 PCR Nasal Coronavir NL63 PCR Nasal Coronavir OC43 PCR Nasal Enterovir/Rhinovir PCR Nasal Influ A H1 2009 PCR Nasal Influenza B PCR Nasal Parainfluen 1 PCR Nasal Parainfluen 2 PCR Nasal Parainfluen 3 PCR Nasal Parainfluen 4 PCR Nasal RSV (PCR) Nasal Screen MRSA (PCR) NEGATIVE (NEGATIVE) Nasal B.pertussis DNA PCR Nasal C.pneumoniae (PCR) Jack Human Metapneumo PCR Nasal M.pneumoniae (PCR) Nasal SARS-CoV-2 (PCR) 05/16/24 05/16/24 05/16/24 Range/Units 18:32 17:44 17:44 WBC (4.8-10.8) x10^3/uL RBC (4.70-6.10) 10^6/uL Hgb (14.0-18.0) g/dL Hct (42.0-52.0) % MCV (80.0-94.0) fL MCH (27.0-31.0) pg MCHC (32.0-36.0) g/dL RDW (12.0-15.0) % Plt Count (130-450) 10^3/uL MPV (7.4-11.4) fL Neut # (Auto) Lymph # (Auto) Bowie # (Auto) Eos # (Auto) Baso # (Auto) Absolute Nucleated RBC Total Counted Band Neuts % (Manual) (0 - 10) % Abnorm Lymph % (Manual) % Metamyelocytes % ( - 0) % Myelocytes % ( - 0) % Nucleated RBC % Neutrophils # (Manual) (1.5-6.6) 10^3/uL Lymphocytes # (Manual) (1.5-3.5) 10^3/uL Monocytes # (Manual) (0.0-1.0) 10^3/uL Eosinophils # (Manual) (0-0.7) 10^3/uL Basophils # (Manual) (0-0.1) 10^3/uL Differential Comment Manual Slide Review WBC Morphology (NORMAL) Platelet Estimate (NORMAL) Platelet Morphology (NORMAL) RBC Morph Micro Appear 1+ POLYCHROMASIA 1+ HYPOCHROMASIA (NORMAL) D-Dimer (200.0-255.0) ng/mL Bld Gas Analysis Time 1838 Sample Site RIGHT RADIAL ABG pH 7.43 (7.35-7.45) ABG pCO2 18 L* (34-45) mmHg ABG pO2 191 H (83-108) mmHg ABG HCO3 11.9 L (22.0-26.0) mmol/L ABG Total CO2 12.5 L (21.0-29.0) mmol/L ABG O2 Saturation 99 H (95-98) % ABG Base Excess -12.6 L (-2.0-3.0) mmol/L Hong Test POSITIVE VBG pH (7.31-7.41) Ionized Calcium (1.09-1.30) mmol/L O2 Delivery Device NASAL CANNULA O2 Liters/Min 45.00 LPM FiO2 66.00 Sodium 123 L (135-145) mmol/L Potassium 2.0 L* (3.5-4.5) mmol/L Chloride 88 L (101-111) mmol/L Carbon Dioxide 15 L (21-32) mmol/L Anion Gap 20.0 H (6-13) BUN 46 H (6-20) mg/dL Creatinine 4.2 H (0.6-1.3) mg/dL Estimated GFR (MDRD) 14 L (>89) Glucose 148 H (74-104) mg/dL Calcium 7.6 L (8.5-10.3) mg/dL Phosphorus (2.5-5.0) mg/dL Magnesium 1.0 L* (1.7-2.3) mg/dL Total Bilirubin 2.4 H (0.2-1.0) mg/dL AST 160 H (10-42) IU/L ALT 70 H (10-60) IU/L Alkaline Phosphatase 30 L (42-121) IU/L Troponin I High Sens 164.2 H* (2.3-19.7) ng/L B-Natriuretic Peptide 129 H (5-100) pg/mL Total Protein 6.7 (6.4-8.9) g/dL Albumin 3.8 (3.2-5.5) g/dL Globulin 2.9 (2.1-4.2) g/dL Albumin/Globulin Ratio 1.3 (1.0-2.2) Lipase 50 (11-82) U/L Procalcitonin Immunoas (<0.5) ng/mL Nasal Adenovirus (PCR) Nasal B. parapertussis DNA (PCR) Nasal Coronavir 229E PCR Nasal Coronavir HKU1 PCR Nasal Coronavir NL63 PCR Nasal Coronavir OC43 PCR Nasal Enterovir/Rhinovir PCR Nasal Influ A H1 2009 PCR Nasal Influenza B PCR Nasal Parainfluen 1 PCR Nasal Parainfluen 2 PCR Nasal Parainfluen 3 PCR Nasal Parainfluen 4 PCR Nasal RSV (PCR) Nasal Screen MRSA (PCR) (NEGATIVE) Nasal B.pertussis DNA PCR Nasal C.pneumoniae (PCR) Jack Human Metapneumo PCR Nasal M.pneumoniae (PCR) Nasal SARS-CoV-2 (PCR) 05/16/24 05/16/24 05/16/24 Range/Units 17:44 17:44 17:44 WBC 3.8 L (4.8-10.8) x10^3/uL RBC 2.45 L (4.70-6.10) 10^6/uL Hgb 10.1 L (14.0-18.0) g/dL Hct 25.1 L (42.0-52.0) % MCV 102.4 H (80.0-94.0) fL MCH 41.2 H (27.0-31.0) pg MCHC 40.2 H (32.0-36.0) g/dL RDW 15.9 H (12.0-15.0) % Plt Count 58 L (130-450) 10^3/uL MPV 10.5 (7.4-11.4) fL Neut # (Auto) Not Reportable Lymph # (Auto) Not Reportable Bowie # (Auto) Not Reportable Eos # (Auto) Not Reportable Baso # (Auto) Not Reportable Absolute Nucleated RBC Not Reportable Total Counted 100 Band Neuts % (Manual) 13 H (0 - 10) % Abnorm Lymph % (Manual) 0 % Metamyelocytes % 5 H ( - 0) % Myelocytes % 1 H ( - 0) % Nucleated RBC % Not Reportable Neutrophils # (Manual) 2.9 (1.5-6.6) 10^3/uL Lymphocytes # (Manual) 0.4 L (1.5-3.5) 10^3/uL Monocytes # (Manual) 0.3 (0.0-1.0) 10^3/uL Eosinophils # (Manual) 0.0 (0-0.7) 10^3/uL Basophils # (Manual) 0.0 (0-0.1) 10^3/uL Differential Comment MANUAL DIFFERENTIAL Manual Slide Review Indicated WBC Morphology 1+ TOXIC GRANULATION (NORMAL) Platelet Estimate DECREASED (<130,000) (NORMAL) Platelet Morphology NORMAL APPEARANCE (NORMAL) RBC Morph Micro Appear 1+ MACROCYTOSIS 1+ MICROCYTOSIS 1+ ANISOCYTOSIS (NORMAL) D-Dimer (200.0-255.0) ng/mL Bld Gas Analysis Time Sample Site ABG pH (7.35-7.45) ABG pCO2 (34-45) mmHg ABG pO2 (83-108) mmHg ABG HCO3 (22.0-26.0) mmol/L ABG Total CO2 (21.0-29.0) mmol/L ABG O2 Saturation (95-98) % ABG Base Excess (-2.0-3.0) mmol/L Hong Test VBG pH (7.31-7.41) Ionized Calcium (1.09-1.30) mmol/L O2 Delivery Device O2 Liters/Min LPM FiO2 Sodium (135-145) mmol/L Potassium (3.5-4.5) mmol/L Chloride (101-111) mmol/L Carbon Dioxide (21-32) mmol/L Anion Gap (6-13) BUN (6-20) mg/dL Creatinine (0.6-1.3) mg/dL Estimated GFR (MDRD) (>89) Glucose (74-104) mg/dL Calcium (8.5-10.3) mg/dL Phosphorus (2.5-5.0) mg/dL Magnesium (1.7-2.3) mg/dL Total Bilirubin (0.2-1.0) mg/dL AST (10-42) IU/L ALT (10-60) IU/L Alkaline Phosphatase (42-121) IU/L Troponin I High Sens (2.3-19.7) ng/L B-Natriuretic Peptide (5-100) pg/mL Total Protein (6.4-8.9) g/dL Albumin (3.2-5.5) g/dL Globulin (2.1-4.2) g/dL Albumin/Globulin Ratio (1.0-2.2) Lipase (11-82) U/L Procalcitonin Immunoas (<0.5) ng/mL Nasal Adenovirus (PCR) Nasal B. parapertussis DNA (PCR) Nasal Coronavir 229E PCR Nasal Coronavir HKU1 PCR Nasal Coronavir NL63 PCR Nasal Coronavir OC43 PCR Nasal Enterovir/Rhinovir PCR Nasal Influ A H1 2009 PCR Nasal Influenza B PCR Nasal Parainfluen 1 PCR Nasal Parainfluen 2 PCR Nasal Parainfluen 3 PCR Nasal Parainfluen 4 PCR Nasal RSV (PCR) Nasal Screen MRSA (PCR) (NEGATIVE) Nasal B.pertussis DNA PCR Nasal C.pneumoniae (PCR) Jack Human Metapneumo PCR Nasal M.pneumoniae (PCR) Nasal SARS-CoV-2 (PCR) 05/16/24 Range/Units 17:36 WBC (4.8-10.8) x10^3/uL RBC (4.70-6.10) 10^6/uL Hgb (14.0-18.0) g/dL Hct (42.0-52.0) % MCV (80.0-94.0) fL MCH (27.0-31.0) pg MCHC (32.0-36.0) g/dL RDW (12.0-15.0) % Plt Count (130-450) 10^3/uL MPV (7.4-11.4) fL Neut # (Auto) Lymph # (Auto) Bowie # (Auto) Eos # (Auto) Baso # (Auto) Absolute Nucleated RBC Total Counted Band Neuts % (Manual) (0 - 10) % Abnorm Lymph % (Manual) % Metamyelocytes % ( - 0) % Myelocytes % ( - 0) % Nucleated RBC % Neutrophils # (Manual) (1.5-6.6) 10^3/uL Lymphocytes # (Manual) (1.5-3.5) 10^3/uL Monocytes # (Manual) (0.0-1.0) 10^3/uL Eosinophils # (Manual) (0-0.7) 10^3/uL Basophils # (Manual) (0-0.1) 10^3/uL Differential Comment Manual Slide Review WBC Morphology (NORMAL) Platelet Estimate (NORMAL) Platelet Morphology (NORMAL) RBC Morph Micro Appear (NORMAL) D-Dimer (200.0-255.0) ng/mL Bld Gas Analysis Time Sample Site ABG pH (7.35-7.45) ABG pCO2 (34-45) mmHg ABG pO2 (83-108) mmHg ABG HCO3 (22.0-26.0) mmol/L ABG Total CO2 (21.0-29.0) mmol/L ABG O2 Saturation (95-98) % ABG Base Excess (-2.0-3.0) mmol/L Hong Test VBG pH (7.31-7.41) Ionized Calcium (1.09-1.30) mmol/L O2 Delivery Device O2 Liters/Min LPM FiO2 Sodium (135-145) mmol/L Potassium (3.5-4.5) mmol/L Chloride (101-111) mmol/L Carbon Dioxide (21-32) mmol/L Anion Gap (6-13) BUN (6-20) mg/dL Creatinine (0.6-1.3) mg/dL Estimated GFR (MDRD) (>89) Glucose (74-104) mg/dL Calcium (8.5-10.3) mg/dL Phosphorus (2.5-5.0) mg/dL Magnesium (1.7-2.3) mg/dL Total Bilirubin (0.2-1.0) mg/dL AST (10-42) IU/L ALT (10-60) IU/L Alkaline Phosphatase (42-121) IU/L Troponin I High Sens (2.3-19.7) ng/L B-Natriuretic Peptide (5-100) pg/mL Total Protein (6.4-8.9) g/dL Albumin (3.2-5.5) g/dL Globulin (2.1-4.2) g/dL Albumin/Globulin Ratio (1.0-2.2) Lipase (11-82) U/L Procalcitonin Immunoas (<0.5) ng/mL Nasal Adenovirus (PCR) NOT DETECTED Nasal B. parapertussis DNA (PCR) NOT DETECTED Nasal Coronavir 229E PCR NOT DETECTED Nasal Coronavir HKU1 PCR NOT DETECTED Nasal Coronavir NL63 PCR NOT DETECTED Nasal Coronavir OC43 PCR NOT DETECTED Nasal Enterovir/Rhinovir PCR NOT DETECTED Nasal Influ A H1 2009 PCR DETECTED A Nasal Influenza B PCR NOT DETECTED Nasal Parainfluen 1 PCR NOT DETECTED Nasal Parainfluen 2 PCR NOT DETECTED Nasal Parainfluen 3 PCR NOT DETECTED Nasal Parainfluen 4 PCR NOT DETECTED Nasal RSV (PCR) NOT DETECTED Nasal Screen MRSA (PCR) (NEGATIVE) Nasal B.pertussis DNA PCR NOT DETECTED Nasal C.pneumoniae (PCR) NOT DETECTED Jack Human Metapneumo PCR NOT DETECTED Nasal M.pneumoniae (PCR) NOT DETECTED Nasal SARS-CoV-2 (PCR) NOT DETECTED Assessment/Plan Problem List (1) Acute hypoxic respiratory failure: Impression: Acute Hypoxic Respiratory Failure (AHRF) - Influenza Positive (PCR) CXR 05/17-comparison 05/16, shows worseingin bilateral consolidation R < L, audible decreased LS on RLL w/ course/rales in bilateral bases. - d/c Ceftriaxone 1g and Azith 500mg - start Vancomycin 2g IV and Cefepime 2g IV - qdaily - Procalitonin 21.23-consider bacterial infection. Blood cultures added, maybe skewed due to abx given prior. - c/f PE - Wells 5.5-mod risk/PERC 4-cannot rule out, D-dimer 707.4 consider CTA - concern w/ CALOS BUN 47/ SrCr 4.3 - Lasix 80mg - Intubated for increased work of breathing, decreased ventilation/oxygenation. - Hpotensive requiring Norepi, titrate for MAP >65 (2) Elevated troponin: Impression: - Troponin elev 142.2, iCal 1.03 - EKG LVH w/ poss old infarction. No STEMI. Denies chest pain/ tightness. - Possible demand ischemia. - ECHO (3) CALOS (acute kidney injury): Impression: Acute Kidney Injury w/ metabolic acidosis - secondary to dehydration due to GI loss w/ flu-s/s. BUN 47/ SrCr 4.3. - caution w/ fluid repletion due to hyponatremia and hypokalemia. - LR @ 125ml/hr --> 75ml/hr --> stopped 05/17 - Bicarb 100 mEq IV, one time dose - Lasix 80mg w/ K+ replacement/CC electorlyte protocol - Serial BMP q4 - Indwelling cath placement for accurate I/O (4) Acute hyponatremia: Impression: Serial BMP as above (5) Electrolyte and fluid disorder: Impression: ICU critical care electrolyte protocol K+ replacement 40 mEq IV + 40 PO. Mag replacement x2 doses Serial BMP as above (6) Flu-like symptoms: Impression: Influenza A positive - Tamiflu added 05/17 - Dexmethasone 6mg PO --> IV dosing - Duo Neb tx's PRN - Mucinex 1200mg BID - NPO at this time - decreased appitite and increased GI loss-n/v/d - PRN antiemetics Zofran IV/PO - conservative fluid replacement (7) Lung cancer: Impression: Small Cell lung cancer, Stage IV (per Son) - last treatment (chemo/rad w/in last 6 months) Qualifiers: Laterality: unspecified laterality
[2024-05-17] MEDS: OSELTAMIVIR 30 MG CAPSULE PO SCH (09:57)
[2024-05-17] MEDS: VANCOMYCIN INJ 2 GM in SODIUM CHLORIDE 0.9% 500 ML IV ONE (09:58)
[2024-05-17 10:16] LABS: CALCIUM 7.4 mg/dL (8.5-10.3); POTASSIUM 2.6 mmol/L (3.5-4.5)
--- NOTE | 2024-05-17 11:14 | PHARMACY PROGRESS NOTE ---
Best Possible Medication History Admit Date and Time: 05/16/24 190 Home Medications Medication Instructions Recorded Confirmed Type atenolol 100 mg tablet 100 mg PO DAILY 05/17/24 05/17/24 History baclofen 10 mg tablet 10 mg PO TID PRN chronic hiccups 05/17/24 05/17/24 History losartan 50 mg tablet 50 mg PO DAILY 05/17/24 05/17/24 History omeprazole 40 mg capsule,delayed 40 mg PO DAILY radiation induced 05/17/24 05/17/24 History release esophagitis potassium chloride 20 mEq 20 meq PO DAILY 05/17/24 05/17/24 History tablet,extended release testosterone cypionate 200 mg/mL 200 mg IM Q7D 05/17/24 05/17/24 History intramuscular oil Processed by: Pharmacy Medications reviewed in ED?: No Medication History completed: Yes Patient Interview: Pt unable to participate Secondary Source(s): Pharmacy records and Insurance records [facility] Statement: As the person ultimately responsible for medication therapy, providers are able to order a medication from an existing home medication list in [facility] via the "Reconcile Routine" prior to Confirmation of that medication by is support analyst. Such practice is discouraged except when the physician, in their clinical judgment, deems that a medical need exists for a medication without regard to previous use.
[2024-05-17] MEDS: DEXMEDETOMIDINE 400 MCG/100 ML 100 ML IV PRN (11:48)
--- NOTE | 2024-05-17 11:56 | PHARMACY PROGRESS NOTE ---
Vancomycin Therapy Monitoring Patient Information Vancomycin Pt Height (inches): 67 Vancomycin Patient Weight (kg): 88 Vanco Rx Serum Creatinine (mg/dL): 4 Vancomycin Therapy BUN (mg/dL): 49 Vancomycin Therapy Calculated Creatinine Cl (ml/min): 20 Concurrent Antibiotics: CEFEPIME Vancomycin Therapy Goals Treatment Indication: EMPERIC Vancomycin Target Range: Vancomycin AUC Target Range 400-600 mcg*h/ml Assessment of Current Therapy Vancomycin Loading Dose (GM, if applicable): 2G Current Vancomycin Maintenance Regimen (if applicable): 1500 MG IV Q48H Estimated Cmax (Peak, mcg/ml): 34.7 Estimated Cmin (Trough, mcg/ml): 17.8 Estimated AUC (mcg*hr/ml): 590
[2024-05-17 12:39] LABS: CALCIUM 7.3 mg/dL (8.5-10.3); CREATININE 3.9 mg/dL (0.6-1.3); POTASSIUM 2.7 mmol/L (3.5-4.5)
[2024-05-17] MEDS: methylPREDNISolone SUCCINATE 40 MG/ML VIAL IVP SCH (13:30)
[2024-05-17] MEDS ORDERED: PROPOFOL 200 MG/20 ML VIAL IVP ONE (14:53)
[2024-05-17] MEDS ORDERED: fentaNYL 100 MCG/2 ML VIAL ONE (14:53)
[2024-05-17] MEDS ORDERED: SUCCINYLCHOLINE 200 MG/10 ML VIAL ONE (14:53)
[2024-05-17] MEDS ORDERED: ROCURONIUM 50 MG/5 ML VIAL ONE (14:53)
[2024-05-17] MEDS ORDERED: PHENYLEPHRINE HCL 0.5 MG/5 ML AMPULE ONE (14:54)
--- NOTE | 2024-05-17 15:29 | ANESTHESIA PROCEDURE NOTE ---
Anesthesia Bedside Procedure Intubation Pre-procedure diagnosis: Acute respiratory failure Post- procedure diagnosis: acute respiratory failure Verification/time out: correct patient and correct procedure Name of person performing procedure: Prem GONSALES student Assistants, if any: Katarina Figueroa CRNA Sedative: other (Propofol 130mg, Succinylcholine 140mg, Fentanyl 100 mcg) Laryngoscope: other (Glidescope #4) ET tube size: 8 ET tube uncuffed: No ET tube secured length (cm): 26 Tube secured location: lip Tube placement confirmation: visualized tube passing through cords, equal breath sounds bilaterally and confirmation by capnometry Estimated blood loss (if any): none Description/Findings: Pre-oxygenated for 10 mins. Laryngoscopy performed by ILDA Esqueda student with grade 1 view. Patient was intubated with ease and correct placement confirmed. Patient tolerated well. Complications: none Conclusion: patient tolerated procedure (Care returned to ICU staff)
[2024-05-17] MEDS: PROPOFOL 1000 MG/100 ML 1,000 MG/100 ML BOTTLE IV SCH (15:30)
[2024-05-17] MEDS: fentaNYL 2,500 MCG in SODIUM CHLORIDE 0.9% 200 ML IV STA (15:36)
--- NOTE | 2024-05-17 15:36 | PROCEDURE REPORT ---
Hospitalist Intubation Note Intubation Indication: Acute Hypoxic Respiratory Failure, declining ventilation/oxygenation. Medications: Etomidate, Propofol and Rocuronium Blade: Glidescope (Hyperangulated video assisted endotracheal intubation.) Tube: Size-enter number (8.0 ETT) and Cuffed Route: Oral Confirmation: Direct visualization, Bilateral breath sounds, No abdominal breath sound, End tidal CO2, Pulse ox and Chest xray Complications: positive No compications Comments/Other Comments/Other: Consent: Risk, benefits, alternatives were discussed with the patient. Procedure/ induction medication: Propofol 130mg, Fentanyl 100mcg, Succinylcholine 140mg. Intubation was used with a Glidescope #4, size 8.0 cuffed ETT, secured 26cm at teeth, secured with commercial holster device. ETT confirmation with positive colormetric change, absent gastric sounds, bilateral lung sounds w/ CO2 waveform and no decrease in O2 saturation. CXR placement confirmation of ETT and NG tube placement. Pt slightly hypotensive BP 90/60, recovered BP 123/77, 100% O2 sat on ventilator. No complications noted. Post-Procedure medication/ continuous drips: propofol and fentanyl
--- NOTE | 2024-05-17 15:40 | XRAY Report ---
PROCEDURE: XR Chest for Line Placement INDICATIONS: tube placement TECHNIQUE: One view of the chest was acquired. COMPARISON: Earlier 05/17/2024. FINDINGS: Surgical changes and devices: Pre-existing right chest Port-A-Cath. Interval placement of ET tube an d NG tube, in satisfactory position. Lungs and pleura: Extensive diffuse bilateral pulmonary infiltrates. Mediastinum: Mediastinal contours appear normal. Heart size is enlarged. Bones and chest wall: No suspicious bony lesions. Overlying soft tissues appear unremarkable. IMPRESSION: Lines and tubes in satisfactory position. Diffuse bilateral pulmonary infiltrates. Reviewed by: Carmelo Saleh MD on 05/17/2024 3:39 PM PST Approved by: Carmelo Saleh MD on 05/17/2024 3:39 PM PST Station ID: [id number]
[2024-05-17] MEDS: NOREPINEPHRINE/0.9 % NS 8 MG/250 ML BAG IV SCH (16:39)
[2024-05-17 17:11] LABS: CALCIUM 7.2 mg/dL (8.5-10.3); CREATININE 3.9 mg/dL (0.6-1.3); MAGNESIUM 1.8 mg/dL (1.7-2.3); POTASSIUM 3.5 mmol/L (3.5-4.5)
[2024-05-17 17:26] LABS: ABG OXYGEN SATURATION 93 % (95-98); ABG PCO2 35 mmHg (34-45); ABG PH 7.32 (7.35-7.45); ABG PO2 78 mmHg (83-108)
[2024-05-17 17:27] LABS: ABG BASE EXCESS -8.2 mmol/L (-2.0-3.0); ABG MODE OF VENTILATION ASSIST/CONTROL; ABG RESPIRATORY RATE 20 b/min; ABG TCO2 19.2 mmol/L (21.0-29.0); ALLEN TEST POSITIVE
[2024-05-17] MEDS: FUROSEMIDE 40 MG/4 ML VIAL IVP ONE (20:05)
[2024-05-17] MEDS: SODIUM CHLORIDE FLUSH 0.9% 10 ML SYRINGE IVP PRN (20:06)
[2024-05-17 21:46] LABS: CALCIUM 7.3 mg/dL (8.5-10.3); CREATININE 4.2 mg/dL (0.6-1.3); POTASSIUM 3.1 mmol/L (3.5-4.5)
[2024-05-17] MEDS: POTASSIUM CHLORIDE 20 MEQ/15 ML UDC PO SCH (22:13)
[2024-05-17] MEDS: CALCIUM GLUC 1,000MG/50ML-NACL 1,000 MG/50 ML BAG IV ONE (22:14)
[2024-05-17] MEDS: MAGNESIUM SULFATE 2 GRAM 2 GM/50 ML BAG IV ONE (23:28)
[2024-05-18] MEDS: fentaNYL 2,500 MCG/250 ML 2,500 MCG/250 ML BAG IV SCH ×2 (00:46→18:06)
[2024-05-18 03:07] LABS: ADENOVIRUS F 40/41 Not Detected (Not Detected); ASTROVIRUS Not Detected (Not Detected); C DIFFICILE TOXIN A/B Not Detected (Not Detected); CAMPYLOBACTER Not Detected (Not Detected); CRYPTOSPORIDIUM Not Detected (Not Detected); CYCLOSPORA CAYETANENSIS Not Detected (Not Detected); ENTAMOEBA HISTOLYTICA Not Detected (Not Detected); ENTEROAGGREGATIVE E COLI Not Detected (Not Detected); ENTEROPATHOGENIC E COLI Not Detected (Not Detected); ENTEROTOXIGENIC E COLI Not Detected (Not Detected); GIARDIA LAMBLIA Not Detected (Not Detected); NOROVIRUS GI/GII Not Detected (Not Detected); PLESIOMONAS SHIGELLOIDES Not Detected (Not Detected); ROTAVIRUS A Not Detected (Not Detected); SALMONELLA Not Detected (Not Detected); SAPOVIRUS Not Detected (Not Detected); SHIGA-TOXIN-PRODUCING E COLI Not Detected (Not Detected); SHIGELLA/ENTEROINVASIVE E COLI Not Detected (Not Detected); VIBRIO Not Detected (Not Detected); VIBRIO CHOLERAE Not Detected (Not Detected); YERSINIA ENTEROCOLITICA Not Detected (Not Detected)
[2024-05-18 05:36] LABS: ABG PCO2 37 mmHg (34-45); ABG PH 7.35 (7.35-7.45)
[2024-05-18 05:37] LABS: ABG BASE EXCESS -5.3 mmol/L (-2.0-3.0); ABG MODE OF VENTILATION ASSIST/CONTROL; ABG OXYGEN SATURATION 94 % (95-98); ABG PO2 74 mmHg (83-108); ABG RESPIRATORY RATE 20 b/min; ABG TCO2 21.6 mmol/L (21.0-29.0); ALLEN TEST POSITIVE
[2024-05-18 05:56] LABS: HCT - HEMATOCRIT 21.3 % (42.0-52.0); HGB - HEMOGLOBIN 8.2 g/dL (14.0-18.0); MEAN CORPUSCULAR HEMOGLOBIN 40.6 pg (27.0-31.0); MEAN CORPUSCULAR HGB CONC 38.5 g/dL (32.0-36.0); MEAN CORPUSCULAR VOLUME 105.4 fL (80.0-94.0); MEAN PLATELET VOLUME 10.1 fL (7.4-11.4); RED BLOOD COUNT 2.02 10^6/uL (4.70-6.10); RED CELL DISTRIBUTION WIDTH 15.7 % (12.0-15.0); WHITE BLOOD COUNT 2.6 x10^3/uL (4.8-10.8)
[2024-05-18 06:08] LABS: MAGNESIUM 2.5 mg/dL (1.7-2.3)
[2024-05-18 06:14] LABS: ALBUMIN/GLOBULIN RATIO 1.2 (1.0-2.2); BILIRUBIN,TOTAL 2.1 mg/dL (0.2-1.0); CALCIUM 7.8 mg/dL (8.5-10.3); CREATININE 4.3 mg/dL (0.6-1.3); POTASSIUM 2.9 mmol/L (3.5-4.5); TOTAL PROTEIN 5.5 g/dL (6.4-8.9)
[2024-05-18] MEDS: PANTOPRAZOLE 40 MG VIAL IVP SCH (06:17)
[2024-05-18] MEDS: POTASSIUM CHLOR 10 MEQ/100 ML 10 MEQ/100 ML BAG IV ONE (08:48)
--- NOTE | 2024-05-18 10:03 | PROVIDER PROGRESS NOTE ---
<Statement entered by Martin Triplett MD - 05/18/24 18:06> I have independently examined the patient and reviewed medical history, chart and relevant details. I agree with the above assessment and plan with the following addition. At approximately 5:45 PM patient's telemetry demonstrated that he was in A-fib with RVR with heart rates in the 170s. Blood pressure was in the 130s systolic. Patient was given a dose of diltiazem 10 mg IV x 1 which successfully reduced patient's heart rate into the 100-1 20 range. Blood pressure also dropped however with systolics in the 80s over 50s. After discussion with pharmacy, we decided to withdraw the ketamine and trial Precedex for a regimen of Precedex, propofol, and fentanyl for sedation. Will continue closely monitor. Subjective Prog Note Date Prog Note Date: 05/18/24 Subjective Pt reports feeling: No change Subjective: Chief Complaint: Increasing dyspnea, diarrhea, and malaise. Assessment & Plan: Mr. Tra Ingram is a 64-year-old gentleman who was admitted to the ICU for the evaluation and treatment of acute hypoxic respiratory failure, acute kidney injury, and acute electrolyte derangement. Upon admission, he was found to have hyponatremia, severe hypokalemia, high anion gap metabolic acidosis, and acute kidney injury, with a creatinine level of 3.9. He was initially treated with IV fluids, Rocephin, and azithromycin. His respiratory status deteriorated, and a chest X-ray revealed diffuse pulmonary infiltrates, fluid overload, and a right lower lobe infiltrate. His antibiotic regimen was transitioned to cefepime and vancomycin, while blood cultures are pending. He was placed on BiPAP and given IV Lasix. Overnight/24-Hour Events: Over the past 24 hours, his respiratory status continued to worsen, with the chest X-ray showing ongoing diffuse pulmonary infiltrates and fluid overload. It was decided to intubate him and sedate him with propofol and fentanyl. The sedation has led to hypotension, which required the administration of norepinephrine, and has resulted in auto-peeping on the ventilator, causing dyssynchrony. The sedation regimen was transitioned to ketamine to mitigate hypotension and promote bronchodilation, while continuing fentanyl. The plan is to continue diuresis and maintain him on IV antibiotics. We will collaborate with respiratory therapy, consider pressure support ventilation using P-CMV, and follow the ARDSNET protocol. A TTE shows a LVEF of 50-55%, which is at the low end of the normal range, with mild tricuspid regurgitation. Hospital Course by Date: 05/16 ED course: placed on O2 therapy due to increased WOB w/ O2 sat in low 80's%. CXR s/s of pulmonary edema, PNA, started abx. Electrolyte derangement: iCal 1.03, K+ 2.0, Na 123, CO2 15, SrCr 4.2, Mag 1, Trop 134. ICU critical care electrolyte protocol. EKG-LVH, old infart, no STEMI. 05/17 ICU admit: O2 sat continued to decline, placed on BiPAP - CXR-worsening bilat consolidation R<L, LS course/decreased on RLL. D/c IV fluids, Lasix, Dexamethasone, added Vancomycin 2g - c/f PE Wells Score 5.5-mod risk/PERC 4-cannot rule out PE. Started Heparin. - ECHO - Elev Procalcitonin 21.23. Blood Cultures NGTD - Worsening ventilation/oxygenation with increased difficulty/work of breathing. PT was intubated at @1500hr with/the attending physician and anesthesia present. - Hypotensive requiring Norepi gtts 05/18: AM CXR - worsening vascular congestion, pulmonary edema, and bibasilar pleural effusions. - Sedation package requiring an increase in vasopressors. Pt auto- peeping/dysyncrony. Transition to Ketamine and Fentanyl. Antibiotics: Ceftriazone 1g IV - D/c 05/17 Azithromycin 500mg IV - D/c 05/17 Added: Vancomycin 2g IV Cefepime 2g IV - qdaily Lines VAD-Port due to Chemo therapy for Cancer PIVs Critical Care Checklist: F: transition to trickle TF w/ nutrition consolt A: PAD protocol on:Yes S: PAD protocol on: Transition to Ketamine, Fentanyl T: DVT Protocol Active: yes, Heparin 5000u SQ BID H: Aspiration Protocol Active: Yes (HOB>30) U: Stress Ulcer Protocol Active: Yes, Protonix 40mg IV G: Glycemic control to goal glucose 140-180 CODE: Full code/treatment Current Medications Current Medications Current Medications: Current Medications Generic Name Dose Route Start Last Admin Trade Name Freq PRN Reason Stop Dose Admin Acetaminophen 650 mg 05/16/24 20:19 Acetaminophen 325 Mg Tablet PO Q4HR PRN Pain 1 to 4, or Fever Albuterol/Ipratropium 3 ml 05/16/24 20:38 05/17/24 17:51 Ipratropium/Albuterol 3 Ml Neb INH 3 ml RTQID PRN Administration Shortness of Air/Wheezing Albuterol/Ipratropium 3 ml 05/17/24 05:48 Ipratropium/Albuterol 3 Ml Neb INH Q4HR PRN Shortness of Air/Wheezing Cefepime HCl 1 gm 05/19/24 09:00 Cefepime 1 Gm Vial IVP DAILY DAVID Furosemide 80 mg 05/17/24 09:00 05/18/24 09:49 Furosemide 40 Mg/4 Ml Vial IVP 80 mg DAILY DAVID Administration Guaifenesin 200 mg 05/16/24 22:30 05/17/24 05:05 Guaifenesin 100 Mg/5 Ml Udc PO 200 mg Q4H PRN Administration Cough Heparin Sodium (Porcine) 5,000 unit 05/16/24 21:00 05/18/24 09:50 Heparin 5,000 Unit/Ml Vial SUBQ Not Given BID DAVID Vancomycin HCl 1 gm/ 500 mls @ 250 mls/hr 05/19/24 10:00 Vancomycin HCl 500 mg/ Sodium IV Chloride Q48H [facility] Propofol 1,000 mg in 100 mls @ 5.28 mls/hr 05/17/24 15:00 05/18/24 12:45 Diprivan IV Infused .[id number] [facility] Titration Protocol 10 MCG/KG/MIN Norepinephrine/Sodium Chloride 8 mg in 250 mls @ 15 mls/hr 05/17/24 17:00 05/18/24 17:44 Levophed 8 Mg/250-0.9% Nacl IV 1 mcg/min .[id number] DAVID 1.88 mls/hr Titration Protocol 8 MCG/MIN Fentanyl 2,500 mcg in 250 mls @ 26.4 mls/hr 05/18/24 18:00 Fentanyl IV .[id number] DAVID Protocol 3 MCG/KG/HR Methylprednisolone 40 mg 05/17/24 14:00 05/18/24 13:44 Methylprednisolone Succinate 40 Mg/Ml Vial IVP 40 mg TID DAVID Administration Ondansetron HCl 4 mg 05/16/24 20:19 Ondansetron Odt 4 Mg Tablet TL Q6HR PRN Nausea / Vomiting Ondansetron HCl 4 mg 05/16/24 20:19 Ondansetron 4 Mg/2 Ml Vial IVP Q6HR PRN Nausea / Vomiting Oseltamivir Phosphate 30 mg 05/17/24 10:00 05/18/24 09:50 Oseltamivir 30 Mg Capsule PO 05/21/24 09:01 30 mg DAILY DAVID Administration Pantoprazole Sodium 40 mg 05/18/24 07:00 05/18/24 06:17 Pantoprazole 40 Mg Vial IVP 40 mg QDAC DAVID Administration Potassium Chloride 40 meq 05/17/24 22:00 05/17/24 22:13 Potassium Chloride 20 Meq/15 Ml Udc PO 05/18/24 21:59 40 meq ONCE DAVID Administration Sodium Chloride 10 ml 05/17/24 01:00 05/18/24 16:34 Sodium Chloride Flush 0.9% 10 Ml Syringe IVP 10 ml 0100,0900,1700 DAVID Administration Sodium Chloride 10 ml 05/16/24 20:19 05/18/24 09:50 Sodium Chloride Flush 0.9% 10 Ml Syringe IVP 10 ml PRN PRN Administration NEEDED PER PROVIDER ORDERS Objective Vital Signs/Intake & Output Vital Signs: Vital Signs Temp Pulse Pulse Resp BP BP Pulse Ox 05/18/24 17:32 145 H 156/98 H 05/18/24 17:00 95 19 127/81 93 05/18/24 16:00 102 H 21 131/79 H 93 05/18/24 15:53 37.5 C 05/18/24 15:31 97 05/18/24 15:00 100 40 H 124/77 95 05/18/24 14:00 92 34 H 125/83 91 L Intake & Output: Intake & Output 05/15/24 05/16/24 05/17/24 05/18/24 23:59 23:59 23:59 23:59 Intake Total 3181 / 3181 4034 / 4034 1680 / 1680 Output Total 0 / 0 2240 / 2240 2390 / 2390 Balance 3181 / 3181 1794 / 1794 -710 / -710 Weight (kg) 88 kg 88 kg 88.5 kg Objective General Appearance: positive Other (sedated, responsive to moderate stimuli.) Eyes Bilateral: positive Normal inspection and PERRL ENT: positive ENT inspection nml and Other (Intubated) Neck: positive Nml inspection, No JVD and Trachea midline Respiratory: positive Wheezes and Rales Cardiovascular: positive Regular rate & rhythm Peripheral Pulses: 1+: Posterior tibialis (R) and 1+: Posterior tibialis (L) and 2+: Radial (R), 2+: Radial (L), 2+: Popliteal (R) and 2+: Popliteal (L) Abdomen: positive Nml bowel sounds and No distention Rectal: positive Other (deferred ) Back: positive Nml inspection Skin: positive Color nml, Warm and Dry Extremities: positive No pedal edema and Other (sedated, limited movement) Neurologic/Psychiatric: positive Other (sedated) Lab Results 05/18/24 05:45 05/18/24 05:45 Other Labs: Lab Results x24hrs 05/18/24 05/18/24 05/18/24 Range/Units 06:30 05:45 05:25 WBC 2.6 L (4.8-10.8) x10^3/uL RBC 2.02 L (4.70-6.10) 10^6/uL Hgb 8.2 L (14.0-18.0) g/dL Hct 21.3 L (42.0-52.0) % MCV 105.4 H (80.0-94.0) fL MCH 40.6 H (27.0-31.0) pg MCHC 38.5 H (32.0-36.0) g/dL RDW 15.7 H (12.0-15.0) % Plt Count 90 L (130-450) 10^3/uL MPV 10.1 (7.4-11.4) fL Bld Gas Analysis Time 0531 Sample Site RIGHT RADIAL ABG pH 7.35 (7.35-7.45) ABG pCO2 37 (34-45) mmHg ABG pO2 74 L (83-108) mmHg ABG HCO3 20.5 L (22.0-26.0) mmol/L ABG Total CO2 21.6 (21.0-29.0) mmol/L ABG O2 Saturation 94 L (95-98) % ABG Base Excess -5.3 L (-2.0-3.0) mmol/L Hong Test POSITIVE VBG pH 7.321 (7.31-7.41) Ionized Calcium 1.10 (1.09-1.30) mmol/L Respiration Rate 20 b/min O2 Delivery Device VENTILATOR Vent Mode ASSIST/CONTROL FiO2 60.00 Tidal Volume 400 mL PEEP 5 cmH2O Sodium 127 L (135-145) mmol/L Potassium 2.9 L (3.5-4.5) mmol/L Chloride 93 L (101-111) mmol/L Carbon Dioxide 21 (21-32) mmol/L Anion Gap 13.0 (6-13) BUN 61 H (6-20) mg/dL Creatinine 4.3 H (0.6-1.3) mg/dL Estimated GFR (MDRD) 14 L (>89) Glucose 161 H (74-104) mg/dL Calcium 7.8 L (8.5-10.3) mg/dL Phosphorus 2.9 (2.5-5.0) mg/dL Magnesium 2.5 H (1.7-2.3) mg/dL Total Bilirubin 2.1 H (0.2-1.0) mg/dL AST 72 H (10-42) IU/L ALT 46 (10-60) IU/L Alkaline Phosphatase 24 L (42-121) IU/L Total Protein 5.5 L (6.4-8.9) g/dL Albumin 3.0 L (3.2-5.5) g/dL Globulin 2.5 (2.1-4.2) g/dL Albumin/Globulin Ratio 1.2 (1.0-2.2) Vitamin B12 369 (180-914) pg/mL Folate 2.4 L (5.90 - >24.8) ng/mL Stl C. cayetanensis PCR (Not Detected) Stool Rotavirus A PCR (Not Detected) Stl Adenov F 40/41 PCR (Not Detected) Stool Astrovirus (PCR) (Not Detected) Stool Campylobacter PCR (Not Detected) Stl C. diff Tox A/B PCR (Not Detected) Stool Cryptosporidium PCR (Not Detected) Stl Sh Tox Pr E STEC PCR (Not Detected) Stool E coli O157 PCR (Not Detected) Stl Enterotoxigenic E PCR (Not Detected) Stool EPEC (PCR) (Not Detected) Stl E. histolytica PCR (Not Detected) Stool Giardia Lamblia PCR (Not Detected) Stl P. shigelloides PCR (Not Detected) Stool Salmonella PCR (Not Detected) Stool Sapovirus (PCR) (Not Detected) Stl Shigella/EIEC PCR (Not Detected) St Y.enterocolitica PCR (Not Detected) Stool Vibrio (PCR) (Not Detected) Stl Vibrio cholerae PCR (Not Detected) Stl Enteroaggr Ecoli PCR (Not Detected) Stl Norovirus GI/GII PCR (Not Detected) 05/17/24 05/17/24 Range/Units 21:05 10:00 WBC (4.8-10.8) x10^3/uL RBC (4.70-6.10) 10^6/uL Hgb (14.0-18.0) g/dL Hct (42.0-52.0) % MCV (80.0-94.0) fL MCH (27.0-31.0) pg MCHC (32.0-36.0) g/dL RDW (12.0-15.0) % Plt Count (130-450) 10^3/uL MPV (7.4-11.4) fL Bld Gas Analysis Time Sample Site ABG pH (7.35-7.45) ABG pCO2 (34-45) mmHg ABG pO2 (83-108) mmHg ABG HCO3 (22.0-26.0) mmol/L ABG Total CO2 (21.0-29.0) mmol/L ABG O2 Saturation (95-98) % ABG Base Excess (-2.0-3.0) mmol/L Hong Test VBG pH (7.31-7.41) Ionized Calcium (1.09-1.30) mmol/L Respiration Rate b/min O2 Delivery Device Vent Mode FiO2 Tidal Volume mL PEEP cmH2O Sodium 126 L (135-145) mmol/L Potassium 3.1 L (3.5-4.5) mmol/L Chloride 94 L (101-111) mmol/L Carbon Dioxide 19 L (21-32) mmol/L Anion Gap 13.0 (6-13) BUN 55 H (6-20) mg/dL Creatinine 4.2 H (0.6-1.3) mg/dL Estimated GFR (MDRD) 14 L (>89) Glucose 193 H (74-104) mg/dL Calcium 7.3 L (8.5-10.3) mg/dL Phosphorus (2.5-5.0) mg/dL Magnesium (1.7-2.3) mg/dL Total Bilirubin (0.2-1.0) mg/dL AST (10-42) IU/L ALT (10-60) IU/L Alkaline Phosphatase (42-121) IU/L Total Protein (6.4-8.9) g/dL Albumin (3.2-5.5) g/dL Globulin (2.1-4.2) g/dL Albumin/Globulin Ratio (1.0-2.2) Vitamin B12 (180-914) pg/mL Folate (5.90 - >24.8) ng/mL Stl C. cayetanensis PCR Not Detected (Not Detected) Stool Rotavirus A PCR Not Detected (Not Detected) Stl Adenov F 40/41 PCR Not Detected (Not Detected) Stool Astrovirus (PCR) Not Detected (Not Detected) Stool Campylobacter PCR Not Detected (Not Detected) Stl C. diff Tox A/B PCR Not Detected (Not Detected) Stool Cryptosporidium PCR Not Detected (Not Detected) Stl Sh Tox Pr E STEC PCR Not Detected (Not Detected) Stool E coli O157 PCR Not applicable (Not Detected) Stl Enterotoxigenic E PCR Not Detected (Not Detected) Stool EPEC (PCR) Not Detected (Not Detected) Stl E. histolytica PCR Not Detected (Not Detected) Stool Giardia Lamblia PCR Not Detected (Not Detected) Stl P. shigelloides PCR Not Detected (Not Detected) Stool Salmonella PCR Not Detected (Not Detected) Stool Sapovirus (PCR) Not Detected (Not Detected) Stl Shigella/EIEC PCR Not Detected (Not Detected) St Y.enterocolitica PCR Not Detected (Not Detected) Stool Vibrio (PCR) Not Detected (Not Detected) Stl Vibrio cholerae PCR Not Detected (Not Detected) Stl Enteroaggr Ecoli PCR Not Detected (Not Detected) Stl Norovirus GI/GII PCR Not Detected (Not Detected) Assessment/Plan Problem List (1) Acute hypoxic respiratory failure: Impression: Influenza Positive (PCR) CXR 05/17-comparison 05/16 shows worsening in bilateral consolidation R < L, audible decreased LS on RLL w/ course/rales in bilateral bases. d/c Ceftriaxone 1g and Azith 500mg Start Vancomycin 2g IV and Cefepime 2g IV - daily Procalitonin 21.23-consider bacterial infection. Blood cultures NGTD c/f PE - Wells 5.5-mod risk/PERC 4-cannot rule out, D-dimer 707.4 consider CTA - concern w/ CALOS BUN 47/ SrCr 4.3 Cont. Lasix 80mg daily, Solu-Medrol 40mg TID Intubated for increased work of breathing and decreased ventilation/oxygenation. Hypotensive requiring Norepi, titrate for MAP >65 Sedation transition to Ketamine and Fentanyl *ARDSNET protocol (2) Elevated troponin: Impression: - Troponin elev 142.2, iCal 1.03 - EKG LVH w/ poss old infarction. No STEMI. Denies chest pain/ tightness. - Possible demand ischemia. - ECHO LVEF 50-55% w/ mild tricuspid regurgitation. WNL RV pressure <35 mmHg (3) CALOS (acute kidney injury): Impression: Acute Kidney Injury w/ metabolic acidosis Secondary to dehydration due to GI loss w/ flu-s/s. BUN & SrCR remain high Caution w/ fluid repletion due to hyponatremia and hypokalemia. Conservative IVF administration. - Bicarb 100 mEq IV, one-time dose - Lasix 80mg w/ K+ replacement/CC electrolyte protocol - Serial BMP q4 - Indwelling cath placement for accurate I/O (4) Acute hyponatremia: Impression: Serial BMP as above (5) Electrolyte and fluid disorder: Impression: ICU critical care electrolyte protocol Aggressive replacement Serial BMP as above (6) Flu-like symptoms: Impression: Influenza A positive - Tamiflu added 05/17 - Solu-Medrol 40mg TID - Duo Neb tx's PRN - Mucinex 1200mg BID (7) Lung cancer: Impression: Small Cell lung cancer, Stage IV (per Son) - last treatment (chemo/rad) 3 months ago Qualifiers: Laterality: unspecified laterality
--- NOTE | 2024-05-18 10:32 | XRAY Report ---
PROCEDURE: XR Chest 1V INDICATIONS: KHOA TECHNIQUE: One view of the chest was acquired. COMPARISON: None FINDINGS: Surgical changes and devices: Right-sided Port-A-Cath in good position. Endotracheal and nasogastric tubes in good position Lungs and pleura: Heart size is enlarged. Moderate vascular congestion with patchy bilateral pulmona ry infiltrates since worsened in the interval. Obscuration both hemidiaphragms. Mediastinum: Mediastinal contours appear normal. Heart size is enlarged Bones and chest wall: No suspicious bony lesions. Overlying soft tissues appear unremarkable. IMPRESSION: Cardiomegaly and worsening vascular congestion, pulmonary edema and bibasilar pleural effusions Reviewed by: Karan Chicas MD on 05/18/2024 9:31 AM [facility] Approved by: Karan Chicas MD on 05/18/2024 9:31 AM [facility] Station ID: [id number]
[2024-05-18] MEDS ORDERED: SODIUM CHLORIDE 0.9% IV SCH (12:00)
[2024-05-18] MEDS ORDERED: KETAMINE IV SCH (12:00)
[2024-05-18] MEDS: KETAMINE IV SCH (12:18)
[2024-05-18] MEDS: SODIUM CHLORIDE 0.9% IV SCH (12:18)
[2024-05-18] MEDS: SODIUM CHLORIDE 0.9% IV ONE ×2 (13:27→16:28)
[2024-05-18] MEDS: KETAMINE IV ONE ×2 (13:27→16:28)
[2024-05-18] MEDS: POTASSIUM CHLOR 10 MEQ/100 ML 10 MEQ/100 ML BAG IV SCH (13:28)
[2024-05-18] MEDS ORDERED: diltiaZEM INJ 5 MG/ML VIAL ONE (17:29)
[2024-05-18] MEDS: diltiaZEM INJ 5 MG/ML VIAL IVP ONE (17:32)
[2024-05-18] MEDS ORDERED: DEXMEDETOMIDINE 400 MCG/100 ML 100 ML IV PRN (17:52)
[2024-05-18] MEDS ORDERED: diltiaZEM INJ 5 MG/ML VIAL IVP PRN (18:40)
[2024-05-18 18:55] LABS: BASOPHILS % (AUTO) 0.2 %; HCT - HEMATOCRIT 22.1 % (42.0-52.0); HGB - HEMOGLOBIN 8.2 g/dL (14.0-18.0); LYMPHOCYTES % (AUTO) 0.9 %; MEAN CORPUSCULAR HEMOGLOBIN 39.8 pg (27.0-31.0); MEAN CORPUSCULAR HGB CONC 37.1 g/dL (32.0-36.0); MEAN CORPUSCULAR VOLUME 107.3 fL (80.0-94.0); MEAN PLATELET VOLUME 10.5 fL (7.4-11.4); MONOCYTES # (AUTO) 0.2 10^3/uL (0.0-1.0); MONOCYTES % (AUTO) 5.1 %; NEUTROPHILS # (AUTO) 4.2 10^3/uL (1.5-6.6); NEUTROPHILS % (AUTO) 90.2 %; PLT - PLATELET COUNT 109 10^3/uL (130-450); RED BLOOD COUNT 2.06 10^6/uL (4.70-6.10); RED CELL DISTRIBUTION WIDTH 15.8 % (12.0-15.0); WHITE BLOOD COUNT 4.7 x10^3/uL (4.8-10.8)
[2024-05-18 18:58] LABS: CALCIUM 7.9 mg/dL (8.5-10.3); CREATININE 4.7 mg/dL (0.6-1.3); POTASSIUM 3.4 mmol/L (3.5-4.5)
[2024-05-18] MEDS: SODIUM BICARBONATE ABBOJECT 50 MEQ/50 ML SYRINGE IVP ONE (20:44)
[2024-05-18] MEDS ORDERED: POTASSIUM CHLORIDE 20 MEQ/15 ML UDC PO SCH (21:00)
[2024-05-18] MEDS: DEXMEDETOMIDINE 400 MCG/100 ML 100 ML IV SCH (23:31)
--- NOTE | 2024-05-19 03:10 | PROVIDER PROGRESS NOTE ---
Mill Manager Note Mill Manager Note Mill Manager Note: notified by nurse regarding the following: "This pt. was started on tube feeding yesterday afternoon with starting rate of 20 ml/hr and H20 of 25 ml/hr. I check for residual, so far pt's residual is >200 on 2 occasions. Per our protocol, I need to contact physician and recommendation is to start pt. on a gastric motility med. Pt. only had a total of 92ml tube feed and 95 ml H2O since feeding was started." chart reviewed reglan q6h 5mg ordered. continue to monitor per protocol.
[2024-05-19] MEDS: METOCLOPRAMIDE 10 MG/2 ML VIAL IVP SCH (03:21)
[2024-05-19 04:48] LABS: ABG BASE EXCESS -5.1 mmol/L (-2.0-3.0); ABG OXYGEN SATURATION 99 % (95-98); ABG PCO2 39 mmHg (34-45); ABG PH 7.34 (7.35-7.45); ABG PO2 108 mmHg (83-108); ABG TCO2 22.1 mmol/L (21.0-29.0)
[2024-05-19 04:49] LABS: ABG MODE OF VENTILATION ASSIST/CONTROL; ABG RESPIRATORY RATE 20 b/min; ALLEN TEST POSITIVE
[2024-05-19 05:39] LABS: HGB - HEMOGLOBIN 8.5 g/dL (14.0-18.0)
[2024-05-19 05:54] LABS: ALBUMIN 3.1 g/dL (3.2-5.5); ALBUMIN/GLOBULIN RATIO 1.1 (1.0-2.2); CALCIUM, IONIZED 1.12 mmol/L (1.09-1.30); POTASSIUM 3.5 mmol/L (3.5-4.5); TOTAL PROTEIN 5.8 g/dL (6.4-8.9)
[2024-05-19 06:19] LABS: MEAN PLATELET VOLUME 10.2 fL (7.4-11.4); WHITE BLOOD COUNT 5.9 x10^3/uL (4.8-10.8)
[2024-05-19 06:23] LABS: RED BLOOD COUNT 2.09 10^6/uL (4.70-6.10)
[2024-05-19 06:24] LABS: HCT - HEMATOCRIT 22.7 % (42.0-52.0); MEAN CORPUSCULAR HEMOGLOBIN 40.7 pg (27.0-31.0); MEAN CORPUSCULAR HGB CONC 37.4 g/dL (32.0-36.0); MEAN CORPUSCULAR VOLUME 108.6 fL (80.0-94.0); RED CELL DISTRIBUTION WIDTH 16.2 % (12.0-15.0)
[2024-05-19 06:27] LABS: PHOSPHORUS 4.3 mg/dL (2.5-5.0)
[2024-05-19] MEDS: CEFEPIME 1 GM VIAL IVP SCH (08:46)
--- NOTE | 2024-05-19 09:34 | PROVIDER PROGRESS NOTE ---
<Statement entered by Martin Triplett MD - 05/19/24 16:36> I have seen and examined the patient Tra Ingram independently I have reviewed progress note by PA student and agree with the findings and assessment and plan of care. In short, the plan is to pursue transfer to higher level of care to an ICU which has access to cardiology and nephrology consultations as well as ideally pulmonary critical care given the patient's complex clinical picture which includes acute respiratory failure requiring mechanical intubation, probable ARDS, as well as worsening renal function with a creatinine of 5, and elevated troponins in the setting of new onset A-fib with an episode of RVR, although currently rate controlled and with downward trending troponin. Subjective Prog Note Date Prog Note Date: 05/19/24 Subjective Pt reports feeling: No change Subjective: Chief Complaint: Increasing dyspnea, diarrhea, and malaise. Assessment & Plan: Mr. Tra Ingram is a 64-year-old gentleman who has been admitted to the ICU for evaluation and treatment of acute hypoxic respiratory failure, acute kidney injury, and acute electrolyte derangement. Upon admission, he was found to have hyponatremia, severe hypokalemia, high anion gap metabolic acidosis, and acute kidney injury, with a creatinine level of 3.9. He was initially treated with intravenous fluids, ceftriaxone, and azithromycin. Mr. Ingram has a significant history of small-cell lung cancer and was previously treated at [facility]. His last chemotherapy session was 9 months ago, followed by radiation therapy 3 months ago, without any surgical intervention. His respiratory status deteriorated, and a chest X-ray revealed diffuse pulmonary infiltrates, fluid overload, and a right lower lobe infiltrate. His antibiotic regimen was switched to cefepime and vancomycin, while blood cultures showed NGTD. He was placed on BiPAP and given intravenous Lasix. However, his respiratory status continued to worsen, as indicated by ongoing diffuse pulmonary infiltrates and fluid overload on follow-up chest X-rays. As a result, he was intubated and sedated with propofol and fentanyl. Unfortunately, the sedation led to hypotension, necessitating the use of norepinephrine. He started experiencing auto-peeping on the ventilator, which caused dyssynchrony. To address hypotension and promote bronchodilation, the sedation regimen was transitioned to ketamine while continuing fentanyl. The plan is to continue diuresis and maintain him on intravenous antibiotics. A TTE revealed a LVEF of 50-55% with mild tricuspid regurgitation. Although his troponin levels have been trending downwards, there is ongoing concern for CAD and NSTEMI. Overnight/24-Hour Events: At approx. 1730hrs yesterday the patient converted into atrial fibrilation RVR w/ HR in 160-170s. BPs remain normotensive w/ systolic 120-130's. He was given Diltiazem 10mg IV x1 dose, reduced HR to 100's w/ hypotension BP 80/50's. Norepinephrine supported BP. Unsure what may have caused the sudden conversion, decided to change sedation, restarted propofol, fentanyl and dexmedetomidine. Trickle tube feeds where started overnight by tele-services. Pt remained hypotensive this morning requiring norepi, still in rate control atrial fib HR 80-90s. AM CXR shows no improvement and ventilator changes include PEEP 5 --> 8, ABG this morning 7.34/ 39/ 108/ 20.9/ -5.1, P/F=166 (moderate ARDS). His CALOS has not improved and has had increasing BUN (78)/ SrCr (5.0) c/f need for HD. Descision was made in consulting with son, to transfer patient to higher level of care. Hospital Course by Date: 05/16 ED course: placed on O2 therapy due to increased WOB w/ O2 sat in low 80's%. CXR s/s of pulmonary edema, PNA, started abx. Electrolyte derangement: iCal 1.03, K+ 2.0, Na 123, CO2 15, SrCr 4.2, Mag 1, Trop 134. ICU critical care electrolyte protocol. EKG-LVH, no STEMI. 05/17 ICU admit: O2 sat continued to decline, placed on BiPAP - CXR-worsening bilat consolidation R<L, LS course/decreased on RLL. D/c IV fluids, Lasix, dexmedetomidine, added Vancomycin 2g - c/f PE Wells Score 5.5-mod risk/PERC 4-cannot rule out PE. Started Heparin, ASA, DOAC. - ECHO: LVEF of 50-55% with mild tricuspid regurgitation - Elev Procalcitonin 21.23. Blood Cultures NGTD - Worsening ventilation/oxygenation with increased difficulty/work of breathing. The patient was intubated at @1500hr with the attending physician and anesthesiologist were present. - Hypotensive requiring Norepi gtts 2/18: AM CXR - worsening vascular congestion, pulmonary edema, and bibasilar pleural effusions. - Sedation package requiring an increase in vasopressors. Pt auto- peeping/dyssynchrony. Transition to Ketamine and Fentanyl. - Approx. 1745hrs, pt converted to Atrial Fibrillation RVR with HR in 160- 170s. BPs remain normotensive w/ systolic 120-130's. - Given Diltiazem 10mg IV x1 dose, reduced HR to 100's w/ hypotension BP 80/50's. Norepinephrine supported BP. - Sedation change: d/c Ketamine, restart propofol, fentanyl, and dexmedetomidine. 05/19: AM CXR unchanged - Moderate vascular congestion and underlying pulmonary infiltrates similar to the prior exam. - Unimproved kidney function w/ increased BUN/SrCr and less than ideal urine output. TF's held for transfer. - Decision to transfer to a higher level of care - [facility]. Current Medications Current Medications Current Medications: Current Medications Generic Name Dose Route Start Last Admin Trade Name Freq PRN Reason Stop Dose Admin Acetaminophen 650 mg 05/16/24 20:19 Acetaminophen 325 Mg Tablet PO Q4HR PRN Pain 1 to 4, or Fever Albuterol/Ipratropium 3 ml 05/16/24 20:38 05/17/24 17:51 Ipratropium/Albuterol 3 Ml Neb INH 3 ml RTQID PRN Administration Shortness of Air/Wheezing Albuterol/Ipratropium 3 ml 05/17/24 05:48 Ipratropium/Albuterol 3 Ml Neb INH Q4HR PRN Shortness of Air/Wheezing Cefepime HCl 1 gm 05/19/24 09:00 05/19/24 08:46 Cefepime 1 Gm Vial IVP 1 gm DAILY DAVID Administration Diltiazem HCl 10 mg 05/18/24 18:40 Diltiazem Inj 5 Mg/Ml Vial IVP Q4HR PRN Tachycardia Diphenhydramine HCl 25 mg 05/19/24 12:53 05/19/24 12:59 Diphenhydramine Inj 50 Mg/Ml Vial IVP 25 mg Q6H PRN Administration Allergy Symptoms Furosemide 80 mg 05/17/24 09:00 05/19/24 08:25 Furosemide 40 Mg/4 Ml Vial IVP 80 mg DAILY DAVID Administration Guaifenesin 200 mg 05/16/24 22:30 05/17/24 05:05 Guaifenesin 100 Mg/5 Ml Udc PO 200 mg Q4H PRN Administration Cough Heparin Sodium (Porcine) 5,000 unit 05/16/24 21:00 05/19/24 08:52 Heparin 5,000 Unit/Ml Vial SUBQ 5,000 unit BID DAVID Administration Vancomycin HCl 1 gm/ 500 mls @ 250 mls/hr 05/19/24 10:00 05/19/24 12:00 Vancomycin HCl 500 mg/ Sodium IV 250 mls/hr Chloride Q48H DAVID Infusion Propofol 1,000 mg in 100 mls @ 5.28 mls/hr 05/17/24 15:00 05/19/24 11:19 Diprivan IV 30 mcg/kg/min .[id number] DAVID 15.84 mls/hr Administration Protocol 10 MCG/KG/MIN Norepinephrine/Sodium Chloride 8 mg in 250 mls @ 15 mls/hr 05/17/24 17:00 05/19/24 10:50 Levophed 8 Mg/250-0.9% Nacl IV 5 mcg/min .[id number] DAVID 9.38 mls/hr Titration Protocol 8 MCG/MIN Fentanyl 2,500 mcg in 250 mls @ 26.4 mls/hr 05/18/24 18:00 05/19/24 11:59 Fentanyl IV 3 mcg/kg/hr .[id number] DAVID 26.4 mls/hr Administration Protocol 3 MCG/KG/HR Dexmedetomidine/Sodium Chloride 100 mls @ 4.425 mls/hr 05/18/24 18:00 05/18/24 23:31 Precedex Premix IV Not Given .[id number] DAVID Protocol 0.2 MCG/KG/HR Methylprednisolone 40 mg 05/17/24 14:00 05/19/24 14:56 Methylprednisolone Succinate 40 Mg/Ml Vial IVP 40 mg TID DAVID Administration Metoclopramide HCl 5 mg 05/19/24 03:30 05/19/24 14:56 Metoclopramide 10 Mg/2 Ml Vial IVP 5 mg Q6H DAVID Administration Ondansetron HCl 4 mg 05/16/24 20:19 Ondansetron Odt 4 Mg Tablet TL Q6HR PRN Nausea / Vomiting Ondansetron HCl 4 mg 02/16/25 20:19 Ondansetron 4 Mg/2 Ml Vial IVP Q6HR PRN Nausea / Vomiting Oseltamivir Phosphate 30 mg 05/17/24 10:00 05/19/24 08:53 Oseltamivir 30 Mg Capsule PO 05/21/24 09:01 30 mg DAILY DAVID Administration Pantoprazole Sodium 40 mg 05/18/24 07:00 05/19/24 06:20 Pantoprazole 40 Mg Vial IVP 40 mg QDAC DAVID Administration Potassium Chloride 40 meq 05/18/24 21:00 Potassium Chloride 20 Meq/15 Ml Udc PO 05/19/24 20:59 ONCE DAVID Sodium Chloride 10 ml 05/17/24 01:00 05/19/24 08:53 Sodium Chloride Flush 0.9% 10 Ml Syringe IVP 10 ml 0100,0900,1700 DAVID Administration Sodium Chloride 10 ml 05/16/24 20:19 05/19/24 05:00 Sodium Chloride Flush 0.9% 10 Ml Syringe IVP 10 ml PRN PRN Administration NEEDED PER PROVIDER ORDERS Objective Vital Signs/Intake & Output Vital Signs: Vital Signs Temp Pulse Pulse Resp BP Pulse Ox 05/19/24 14:00 83 17 120/81 95 05/19/24 13:21 88 05/19/24 13:00 97 19 112/78 94 05/19/24 12:00 36.6 C 88 18 121/85 92 Intake & Output: Intake & Output 05/16/24 05/17/24 05/18/24 05/19/24 23:59 23:59 23:59 23:59 Intake Total 3181 / 3181 4034 / 4034 1790 / 1790 1747 / 1747 Output Total 0 / 0 2240 / 2240 3300 / 3300 2075 / 2075 Balance 3181 / 3181 1794 / 1794 -1510 / -1510 -328 / -328 Weight (kg) 88 kg 88 kg 88.5 kg 88.5 kg Objective General Appearance: positive Other (sedated) Eyes Bilateral: positive Normal inspection and PERRL ENT: positive ENT inspection nml and Pharynx nml Neck: positive Nml inspection, Thyroid nml, No JVD and Trachea midline Respiratory: positive Rales (persistent bibasilar crackles/rales in mid-bases.) Cardiovascular: positive No murmur, No gallop and Irregularly irregular (Atrial fib on monitor) Peripheral Pulses: 2+: Radial (R), 2+: Radial (L), 2+: Dorsalis pedis (R), 2+: Dorsalis pedis (L), 2+: Posterior tibialis (R) and 2+: Posterior tibialis (L) Abdomen: positive Non-tender, No organomegaly, No distention and Abnml bowel sounds (audible but hypoactive) Rectal: positive Other (deferred) Back: positive Nml inspection Skin: positive Color nml, No rash, Warm, Dry and Pallor (pink/pale) Extremities: positive Non-tender, Full ROM and No pedal edema Neurologic/Psychiatric: positive Other (responds to verbal and follows commands) Lab Results 05/19/24 04:55 05/19/24 04:55 Other Labs: Lab Results x24hrs 05/19/24 05/19/24 05/19/24 Range/Units 12:29 11:02 09:48 WBC (4.8-10.8) x10^3/uL RBC (4.70-6.10) 10^6/uL Hgb (14.0-18.0) g/dL Hct (42.0-52.0) % MCV (80.0-94.0) fL MCH (27.0-31.0) pg MCHC (32.0-36.0) g/dL RDW (12.0-15.0) % Plt Count (130-450) 10^3/uL MPV (7.4-11.4) fL Neut # (Auto) (1.5-6.6) 10^3/uL Lymph # (Auto) (1.5-3.5) 10^3/uL [place] # (Auto) (0.0-1.0) 10^3/uL Eos # (Auto) (0.0-0.7) 10^3/uL Baso # (Auto) (0.0-0.1) 10^3/uL Absolute Nucleated RBC x10^3/uL Nucleated RBC % /100WBC Bld Gas Analysis Time Sample Site ABG pH (7.35-7.45) ABG pCO2 (34-45) mmHg ABG pO2 (83-108) mmHg ABG HCO3 (22.0-26.0) mmol/L ABG Total CO2 (21.0-29.0) mmol/L ABG O2 Saturation (95-98) % ABG Base Excess (-2.0-3.0) mmol/L Hong Test VBG pH (7.31-7.41) Ionized Calcium (1.09-1.30) mmol/L Respiration Rate b/min O2 Delivery Device Vent Mode FiO2 Tidal Volume mL PEEP cmH2O Sodium (135-145) mmol/L Potassium (3.5-4.5) mmol/L Chloride (101-111) mmol/L Carbon Dioxide (21-32) mmol/L Anion Gap (6-13) BUN (6-20) mg/dL Creatinine (0.6-1.3) mg/dL Estimated GFR (MDRD) (>89) Glucose (74-104) mg/dL POC Whole Bld Glucose 201 201 (70-100) mg/dL Calcium (8.5-10.3) mg/dL Phosphorus (2.5-5.0) mg/dL Magnesium (1.7-2.3) mg/dL Total Bilirubin (0.2-1.0) mg/dL AST (10-42) IU/L ALT (10-60) IU/L Alkaline Phosphatase (42-121) IU/L Troponin I High Sens (2.3-19.7) ng/L Total Protein (6.4-8.9) g/dL Albumin (3.2-5.5) g/dL Globulin (2.1-4.2) g/dL Albumin/Globulin Ratio (1.0-2.2) Prealbumin (17-34) mg/dL Last Dose Date UNK Last Dose Time UNK Random Vancomycin 26.4 ug/mL 05/19/24 05/19/24 05/18/24 Range/Units 04:55 04:40 18:35 WBC 5.9 4.7 L (4.8-10.8) x10^3/uL RBC 2.09 L 2.06 L (4.70-6.10) 10^6/uL Hgb 8.5 L 8.2 L (14.0-18.0) g/dL Hct 22.7 L 22.1 L (42.0-52.0) % MCV 108.6 H 107.3 H (80.0-94.0) fL MCH 40.7 H 39.8 H (27.0-31.0) pg MCHC 37.4 H 37.1 H (32.0-36.0) g/dL RDW 16.2 H 15.8 H (12.0-15.0) % Plt Count 126 L 109 L (130-450) 10^3/uL MPV 10.2 10.5 (7.4-11.4) fL Neut # (Auto) 4.2 (1.5-6.6) 10^3/uL Lymph # (Auto) 0.0 L (1.5-3.5) 10^3/uL [place] # (Auto) 0.2 (0.0-1.0) 10^3/uL Eos # (Auto) 0.0 (0.0-0.7) 10^3/uL Baso # (Auto) 0.0 (0.0-0.1) 10^3/uL Absolute Nucleated RBC 0.00 x10^3/uL Nucleated RBC % 0.0 /100WBC Bld Gas Analysis Time 0455 Sample Site RIGHT RADIAL ABG pH 7.34 L (7.35-7.45) ABG pCO2 39 (34-45) mmHg ABG pO2 108 (83-108) mmHg ABG HCO3 20.9 L (22.0-26.0) mmol/L ABG Total CO2 22.1 (21.0-29.0) mmol/L ABG O2 Saturation 99 H (95-98) % ABG Base Excess -5.1 L (-2.0-3.0) mmol/L Hong Test POSITIVE VBG pH 7.285 L (7.31-7.41) Ionized Calcium 1.12 (1.09-1.30) mmol/L Respiration Rate 20 b/min O2 Delivery Device VENTILATOR Vent Mode ASSIST/CONTROL FiO2 65.00 Tidal Volume 400 mL PEEP 5 cmH2O Sodium 131 L 127 L (135-145) mmol/L Potassium 3.5 3.4 L (3.5-4.5) mmol/L Chloride 95 L 94 L (101-111) mmol/L Carbon Dioxide 22 19 L (21-32) mmol/L Anion Gap 14.0 H 14.0 H (6-13) BUN 78 H 68 H (6-20) mg/dL Creatinine 5.0 H 4.7 H (0.6-1.3) mg/dL Estimated GFR (MDRD) 12 L 13 L (>89) Glucose 190 H 147 H (74-104) mg/dL POC Whole Bld Glucose (70-100) mg/dL Calcium 8.0 L 7.9 L (8.5-10.3) mg/dL Phosphorus 4.3 (2.5-5.0) mg/dL Magnesium 2.7 H 2.4 H (1.7-2.3) mg/dL Total Bilirubin 2.0 H (0.2-1.0) mg/dL AST 44 H (10-42) IU/L ALT 37 (10-60) IU/L Alkaline Phosphatase 32 L (42-121) IU/L Troponin I High Sens 35.4 H* (2.3-19.7) ng/L Total Protein 5.8 L (6.4-8.9) g/dL Albumin 3.1 L (3.2-5.5) g/dL Globulin 2.7 (2.1-4.2) g/dL Albumin/Globulin Ratio 1.1 (1.0-2.2) Prealbumin 4 L (17-34) mg/dL Last Dose Date Last Dose Time Random Vancomycin ug/mL Assessment/Plan Problem List (1) Acute hypoxic respiratory failure: Impression: Consult w/ pulmonology and transfer to higher level of care. Influenza A + Blood cultures NGTD *ARDSNET protocol ETT/ Vent management, P/F 166 - Moderate ARDS - 6ml/kg Vte settings - Req increased PEEP - Increase in sedation for vent dysyncrony and auto-PEEP Serial ABGs CXR 05/19-comparison to previous, shows worsening in bilateral consolidation R < L, audible w/ crackles/rales in bilateral mid-bases. Emperic Vancomycin 2g IV and Cefepime 2g IV - daily Cont. Lasix 80mg daily, Solu-Medrol 40mg TID Hypotensive requiring Norepi, titrate for MAP >65 c/f PE - Wells 5.5-mod risk/PERC 4-cannot rule out, D-dimer 707.4 (2) CALOS (acute kidney injury): Impression: BUN & SrCR remain high, not improving, less than expected urine output. Consult w/ Nephrology and transfer to higher level of care. Caution w/ fluid repletion due to pulmonary edema, hyponatremia and hypokalemia. Conservative IVF administration. Bicarb 100 mEq IV Continue Lasix 80mg w/ K+ replacement/CC electrolyte protocol Serial BMP q4 Indwelling cath placement for accurate I/O TF held-NPO for transfer (3) Atrial fibrillation: Impression: Potentially new/ unknown if prior Afib - Developed Atrial fib w/ RVR HR 160- 170s, rate controlled with Diltiazem/ metoproolol. <48hr window Troponin down trending, c/f CAD/ ischemia. Continue Heparin, ASA, DOAC. Repeat EKGs TTE prior to Afib - LVEF 50-55% w/ mild tricuspid regurgitation. WNL RV pressure <35 mmHg (4) Electrolyte and fluid disorder: Impression: Improving w/ AM K+ 3.5 Cont. ICU critical care electrolyte protocol Serial BMP as above (5) Acute hyponatremia: Impression: Improving - AM Na 131 Serial BMP as above (6) Flu-like symptoms: Impression: Influenza A + - Tamiflu added 05/17 - Solu-Medrol 40mg TID - Duo Neb tx's PRN - Mucinex 1200mg BID (7) Elevated troponin: Impression: Troponin down trending, c/f CAD/ ischemia EKG LVH. No STEMI, but c/f NSTEMI. Continue Heparin, ASA, DOAC. Consult w/ Cardiology and transfer to higher level of care (8) Lung cancer: Impression: Small Cell lung cancer, Stage IV (per Son) Treatments at [facility] - last treatment: chemo 9m/ rad 3m ago Qualifiers: Laterality: unspecified laterality
[2024-05-19] MEDS: VANCOMYCIN INJ 1 GM, VANCOMYCIN INJ 500 MG in SODIUM CHLORIDE 0.9% 500 ML IV SCH (10:40)
--- NOTE | 2024-05-19 12:03 | XRAY Report ---
PROCEDURE: XR Chest 1V INDICATIONS: Pt intubated, assess for changes TECHNIQUE: One view of the chest was acquired. COMPARISON: None FINDINGS: Surgical changes and devices: Endotracheal, nasogastric and right-sided Port-A-Cath in good position unchanged Lungs and pleura: Moderate vascular congestion and underlying pulmonary infiltrates similar to the p rior exam. No pneumothorax. Mediastinum: Mediastinal contours appear normal. Heart size is enlarged Bones and chest wall: No suspicious bony lesions. Overlying soft tissues appear unremarkable. IMPRESSION: Stable cardiomegaly, moderate vascular congestion and pulmonary edema Lines and tubes unchanged Reviewed by: Karan Chicas MD on 05/19/2024 11:02 AM [place] Approved by: Karan Chicas MD on 05/19/2024 11:02 AM [facility] Station ID: [id number]
[2024-05-19] MEDS: diphenhydrAMINE INJ 50 MG/ML VIAL IVP PRN (12:59)
[2024-05-19 13:44] LABS: VANCOMYCIN,RANDOM 26.4 ug/mL
--- NOTE | 2024-05-19 18:38 | Discharge Summary ---
"Discharge Summary Admit Date: 05/16/24 Discharge Date: 05/19/24 Discharging Provider: Dr Martin Triplett Code Status: Attempt Resuscitation Discharge [facility] Name: [facility] DIAGNOSES Admission Diagnoses: Acute hypoxic respiratory failure Influenza A Acute kidney injury Acute hyponatremia Discharge Diagnoses with Status of Each Condition: Acute hypoxic respiratory failurecritical Acute kidney injuryworsening Atrial fibrillationnew onset, stable, rate controlled Hyponatremiaimproved HPI History of Present Illness: 64-year-old male PMH significant for lung cancer previously treated with radiation and chemo without surgery who presents to the ER with 1 week of fevers, cough, malaise, chest congestion, nausea, diarrhea. EMS noted his sats to be in the low 80s. He was given nebs and brought into the ER In the ER, chest x-ray was performed which showed mild cardiomegaly, infectious versus fluid overload process specifically right lower lung. His lab work was significant for potassium 2, sodium 123, CO2 15, creatinine 4.2, mag 1, troponin 164. His respiratory status was poor, requiring high flow O2. Hospitalist was contacted for admission for acute hypoxic respiratory failure CONSULTS | PROCEDURES Procedures: Intubation and mechanical ventilation HOSPITAL COURSE Hospital Course: 05/16 ED course: placed on O2 therapy due to increased WOB w/ O2 sat in low 80's%. CXR s/s of pulmonary edema, PNA, started abx. Electrolyte derangement: iCal 1.03, K+ 2.0, Na 123, CO2 15, SrCr 4.2, Mag 1, Trop 134. ICU critical care electrolyte protocol. EKG-LVH, no ischemic changes. 05/17 ICU admit: O2 sat continued to decline, placed on BiPAP - CXR-worsening bilat consolidation R<L, LS course/decreased on RLL. D/c IV fluids, Lasix, dexmedetomidine, added Vancomycin 2g - c/f PE Wells Score 5.5-mod risk/PERC 4-cannot rule out PE. Started Heparin prophylactic dosing, ASA, DOAC. - ECHO: LVEF of 50-55% with mild tricuspid regurgitation - Elev Procalcitonin 21.23. Blood Cultures NGTD - Worsening ventilation/oxygenation with increased difficulty/work of breathing. The patient was intubated at @1500hr - Hypotensive requiring Norepi gtt 05/18: AM CXR - worsening vascular congestion, pulmonary edema, and bibasilar pleural effusions. - Sedation package requiring an increase in vasopressors. Pt auto- peeping/dyssynchrony. Transition to Ketamine and Fentanyl. - Approx. 1745hrs, pt converted to Atrial Fibrillation RVR with HR in 160-170s. BPs remain normotensive w/ systolic 120-130's. - Given Diltiazem 10mg IV x1 dose, reduced HR to 100's w/ hypotension BP 80/50's. Norepinephrine supported BP. - Sedation change: d/c Ketamine, restart propofol, fentanyl, and dexmedetomidine. 05/19: AM CXR unchanged - Moderate vascular congestion and underlying pulmonary infiltrates similar to the prior exam. - Worsening kidney function w/ increased BUN/SrCr and less than ideal urine output. TF's held for transfer. - Decision to transfer to a higher level of care - Have contacted [facility], where he receives Lung CA care, electromechanic tentatively accepted pt though no beds available. Pt wait listed. Contacted [facility]. Pt accepted for transfer to MICU when bed available. ALLERGIES Allergies Allergy/AdvReac Type Severity Reaction Status Date / Time No Known Drug Allergies Allergy Verified 05/16/24 17:39 MEDICATIONS Ambulatory Orders Medication Instructions Recorded Confirmed atenolol 100 mg tablet 100 mg PO DAILY 05/17/24 05/17/24 baclofen 10 mg tablet 10 mg PO TID PRN chronic hiccups 05/17/24 05/17/24 losartan 50 mg tablet 50 mg PO DAILY 05/17/24 05/17/24 omeprazole 40 mg capsule,delayed 40 mg PO DAILY radiation induced 05/17/24 05/17/24 release esophagitis potassium chloride 20 mEq 20 meq PO DAILY 05/17/24 05/17/24 tablet,extended release testosterone cypionate 200 mg/mL 200 mg IM Q7D 05/17/24 05/17/24 intramuscular oil PHYSICAL EXAM AT DISCHARGE General Appearance: positive Lethargic (Sedated, but opens eyes and intermittently able to follow simple commands) Respiratory: positive Other (Diffuse bilateral basilar crackles) Cardiovascular: positive Irregularly irregular Peripheral Pulses: positive 0 Abdomen: positive Non-tender and No distention Back: positive Nml inspection Skin: positive Color nml Extremities: negative Pedal edema Neurologic/Psychiatric: positive Other (sedated, but intermittently alert and responsive) LABS 05/19/24 04:55 05/19/24 04:55 DIAGNOSTIC IMAGING Diagnostic Imaging Results: Final report reviewed and Read independently SEPSIS Current Stage of Sepsis: Sepsis Sepsis Criteria: WBC count greater than 12,000 or less than 4000 TIME SPENT Time Spent in Discharge (Minutes): 120 Discharge Plan Discharge Patient Disposition: 02 Transfer Acute Care Hosp Condition: Stable Prescriptions: No Action atenolol 100 mg tablet 100 mg PO DAILY baclofen 10 mg tablet 10 mg PO TID PRN (Reason: chronic hiccups) losartan 50 mg tablet 50 mg PO DAILY omeprazole 40 mg capsule,delayed release(DR/EC) 40 mg PO DAILY potassium chloride 20 mEq tablet extended release 20 meq PO DAILY testosterone cypionate 200 mg/mL oil 200 mg IM Q7D Print Language: Greek Stand Alone Forms: PCP List Discharge Location: [facility] - Cardiology (Evt) Exam Vital Signs Vital Signs: Vital Signs x48h Temp Pulse Pulse Resp BP Pulse Ox 05/19/24 18:07 73 05/19/24 18:00 87 19 119/91 H 96 05/19/24 17:00 84 19 115/80 95 05/19/24 16:28 100 05/19/24 16:00 89 20 116/88 95 05/19/24 15:00 84 19 122/87 95 05/19/24 14:00 83 17 120/81 95 05/19/24 13:21 88 05/19/24 13:00 97 19 112/78 94 05/19/24 12:00 36.6 C 88 18 121/85 92 05/19/24 11:00 88 18 120/82 93 Physical Exam General Appearance: positive Lethargic (Sedated, but opens eyes and intermittently able to follow simple commands) Respiratory: positive Other (Diffuse bilateral basilar crackles) Cardiovascular: positive Irregularly irregular Peripheral Pulses: positive 0 Abdomen: positive Non-tender and No distention Back: positive Nml inspection Skin: positive Color nml Extremities: negative Pedal edema Neurologic/Psychiatric: positive Other (sedated, but intermittently alert and responsive)"
[2024-05-19 20:15] VITALS: TEMP 98.1
[2024-05-19 23:28] VITALS: BP 100/68; O2SAT 95
== END 2024-05-20 00:10 | disposition short-term general hospital (02) | DRG 871 ==
LOC: ED 17:32 → ICU 19:05
PROVIDERS: ADMIT Nurse Practitioner Acute Care; ATTEND Nurse Practitioner Acute Care
DX: J10.1 Influenza due to other identified influenza virus with other respiratory manifestations; I48.91 Unspecified atrial fibrillation; E86.0 Dehydration; R19.7 Diarrhea, unspecified; Z92.21 Personal history of antineoplastic chemotherapy; Z20.818 Contact with and (suspected) exposure to other bacterial communicable diseases; E87.1 Hypo-osmolality and hyponatremia; Z20.828 Contact with and (suspected) exposure to other viral communicable diseases; I07.1 Rheumatic tricuspid insufficiency; Z92.3 Personal history of irradiation; C34.90 Malignant neoplasm of unspecified part of unspecified bronchus or lung; E87.6 Hypokalemia; I95.2 Hypotension due to drugs; Z87.891 Personal history of nicotine dependence; T41.295A Adverse effect of other general anesthetics, initial encounter; T40.415A Adverse effect of fentanyl or fentanyl analogs, initial encounter; Z20.822 Contact with and (suspected) exposure to COVID-19; N17.9 Acute kidney failure, unspecified; J96.01 Acute respiratory failure with hypoxia; R79.89 Other specified abnormal findings of blood chemistry; E87.20 Acidosis, unspecified; A41.9 Sepsis, unspecified organism; R11.0 Nausea